=== PATIENT | male | born 1945 | race Caucasian/White ===

== ENCOUNTER 2018-03-09 12:04 | Outpatient (CLI) | payer OTHER | END 2018-03-09 12:05 | disposition home or self-care (01) | LOC: BICMRI 12:04 | PROVIDERS: ATTEND Surgery | DX: M51.36 Other intervertebral disc degeneration, lumbar region (principal); Q06.8 Other specified congenital malformations of spinal cord; M54.2 Cervicalgia; M47.896 Other spondylosis, lumbar region; M48.061 Spinal stenosis, lumbar region without neurogenic claudication; M99.83 Other biomechanical lesions of lumbar region; M47.892 Other spondylosis, cervical region; M48.02 Spinal stenosis, cervical region; M99.81 Other biomechanical lesions of cervical region | CPT/HCPCS: 72131; 72141; 72146; 72192 ==

== ENCOUNTER 2018-06-01 09:27 | Outpatient (CLI) | payer OTHER ==
[2018-06-01 10:58] LABS: PTT 29.8 SEC (22.9-36.1); Prothrombin Time 13.1 SEC (12.0-14.7)
[2018-06-01 11:08] LABS: Hemoglobin 14.4 g/dL (14.0-18.0); Mean Corpuscular HGB CONC 35.5 g/dL (32.0-36.0); Mean Corpuscular Hemoglobin 31.3 pg (27.0-31.0); Mean Corpuscular Volume 88.3 fL (78.0-98.0); Mean Platelet Volume 8.7 fL (7.4-10.4); Platelet Count 105 thou/uL (130-400); RBC Distribution Width 11.9 % (11.5-14.5); Red Blood Cell (RBC) Count 4.61 mill/uL (4.70-6.10); White Blood Cell (WBC) Count 7.4 thou/uL (4.8-10.8)
[2018-06-01 11:14] LABS: Anion Gap 17 mmol/L (10-20); BUN (Urea Nitrogen) 19 mg/dL (8.4-25.7); Calc. Creatinine Clearance 0 mL/min (70-130); Calcium 9.7 mg/dL (7.8-10.44); Carbon Dioxide 23 mmol/L (23-31); Chloride 100 mmol/L (98-107); Estimated GFR-MDRD 82; Glucose 200 mg/dL (83-110); Potassium 3.6 mmol/L (3.5-5.1); Sodium 136 mmol/L (136-145)
--- NOTE | 2018-06-01 13:16 | EKG ---
Test Reason : Blood Pressure : / mmHG Vent. Rate : 073 BPM Atrial Rate : 073 BPM P-R Int : 000 ms QRS Dur : 088 ms QT Int : 374 ms P-R-T Axes : 040 005 000 degrees QTc Int : 412 ms Normal sinus rhythm with sinus arrhythmia Normal ECG No previous ECGs available Confirmed by MANI VALDEZ, DR. Mccloud ([id number]) on 06/01/2018 1:16:36 PM Referred By: TASHA Confirmed By:DR. Ame SINGLETON MD
== END 2018-06-01 09:28 | disposition home or self-care (01) ==
LOC: LABBT 09:27
PROVIDERS: ATTEND Surgery
DX: Z01.818 Encounter for other preprocedural examination (principal); M54.16 Radiculopathy, lumbar region; Q06.8 Other specified congenital malformations of spinal cord
CPT/HCPCS: 80048; 85027; 85610; 85730; 93005; 93010

== ENCOUNTER 2018-06-24 05:52 | Inpatient (IN) | payer OTHER ==
[2018-06-23 09:54] VITALS: BMI 34.4
[2018-06-24 06:53] LABS: #Eosinphils 0.1 thou/uL (0.0-0.7); #Lymphocytes 1.7 thou/uL (1.20-3.40); #Monocytes 0.6 thou/uL (0.11-0.59); #Neutrophils 4.3 thou/uL (1.40-6.50); %Basophils 0.6 % (0.0-1.0); %Eosinophils 2.2 % (0.0-10.0); %Lymphocytes 24.9 % (21.0-51.0); %Monocytes 8.3 % (0.0-10.0); Hemoglobin 13.7 g/dL (14.0-18.0); Mean Corpuscular HGB CONC 34.7 g/dL (32.0-36.0); Mean Corpuscular Hemoglobin 30.7 pg (27.0-31.0); Mean Corpuscular Volume 88.5 fL (78.0-98.0); Mean Platelet Volume 7.7 fL (7.4-10.4); Platelet Count 91 thou/uL (130-400); RBC Distribution Width 11.9 % (11.5-14.5); Red Blood Cell (RBC) Count 4.48 mill/uL (4.70-6.10); White Blood Cell (WBC) Count 6.8 thou/uL (4.8-10.8)
[2018-06-24 06:57] LABS: PTT 28.7 SEC (22.9-36.1); Prothrombin Time 13.3 SEC (12.0-14.7)
[2018-06-24] MEDS ORDERED: CEFAZOLIN 2 GM/50 ML BAG ONE (06:57)
[2018-06-24 07:11] LABS: Anion Gap 19 mmol/L (10-20); BUN (Urea Nitrogen) 22 mg/dL (8.4-25.7); Calc. Creatinine Clearance 125 mL/min (70-130); Calcium 9.3 mg/dL (7.8-10.44); Carbon Dioxide 21 mmol/L (23-31); Chloride 102 mmol/L (98-107); Estimated GFR-MDRD Greater than 90; Glucose 191 mg/dL (83-110); Potassium 3.1 mmol/L (3.5-5.1); Sodium 139 mmol/L (136-145)
[2018-06-24] MEDS ORDERED: Thrombin 5000 UNITS/5 ML VIAL ONE ×2 (09:30→12:34)
[2018-06-24] MEDS ORDERED: Sodium Chloride 0.9% 10 ML ONE (09:30)
[2018-06-24] MEDS ORDERED: Bacitracin Zinc Ointment 30 gm TUBE ONE (09:30)
[2018-06-24] MEDS ORDERED: Fentanyl 100 MCG/2 ML VIAL ONE ×3 (10:01→14:27)
[2018-06-24] MEDS ORDERED: PHENYLEPHRINE-NS 100 MCG/ML 10 ML SYRINGE ONE ×2 (12:14→16:18)
[2018-06-24] MEDS ORDERED: Phenylephrine HCL 10 MG/ML VIAL ONE (12:21)
[2018-06-24] MEDS ORDERED: Ondansetron HCl/PF 4 MG/2 ML Vial IVP PRN (13:54)
[2018-06-24] MEDS ORDERED: Milk Of Magnesia 30 ML UDCUP PO PRN (14:09)
[2018-06-24] MEDS ORDERED: Promethazine HCl 25 MG/ML VIAL IM PRN (14:09)
[2018-06-24] MEDS ORDERED: Fleet Enema 133 ML BOT PR PRN (14:09)
[2018-06-24] MEDS ORDERED: Mag-Al 1200 mg/1200 mg/30 ML UDCUP PO PRN (14:09)
[2018-06-24] MEDS ORDERED: traMADol HCl 50 MG TAB PO PRN (14:09)
[2018-06-24] MEDS ORDERED: Morphine 2 MG/ML SYRINGE SLOW IVP PRN (14:09)
[2018-06-24] MEDS ORDERED: HYDROcodone/Acetaminophen 7.5/325 mg Tablet PO PRN (14:09)
[2018-06-24] MEDS ORDERED: tiZANidine HCl 4 MG TAB PO PRN (14:09)
[2018-06-24] MEDS ORDERED: Bisacodyl 10 MG SUPP PR PRN (14:09)
[2018-06-24] MEDS ORDERED: Promethazine HCl 25 MG/ML VIAL ONE (14:11)
[2018-06-24] MEDS ORDERED: DESONIDE 0.05% TOP PRN (14:14)
--- NOTE | 2018-06-24 15:33 | OP ---
DATE OF PROCEDURE: 06/24/2018 OPERATING ROOM: OR 12. WOUND CLASSIFICATION: Type 1 wound. BUSINESS MANAGEMENT INTERN: Pilo Gonzales PA-C PREPROCEDURE DIAGNOSIS: Lumbar stenosis with associated tethered cord and thickened filum terminale. POSTPROCEDURE DIAGNOSIS: Lumbar stenosis with associated tethered cord and thickened filum terminale. PROCEDURES PERFORMED: 1. L4-L5 and L5-S1 laminectomies, partial facetectomies, foraminotomies for decompression of the L4, L5, and S1 nerve roots. 2. Untethering of the thickened filum terminale through S1-S2 approach over thickened filum terminale with untethering. 3. Use of operative microscope for microdissection. DESCRIPTION OF PROCEDURE: After informed consent was obtained from the patient, the patient was brought to OR. Appropriate patient's pause and identification were carried out. He was placed under excellent general endotracheal anesthesia, positioned prone on the OR table. Appropriate points were padded. We identified the L4, L5, S1, and S2 dorsal spines and also a dimple above the gluteal fold consistent with a neural tube defect. MRI demonstrated T1 hyperintensity and increased measurement of the filum terminale with a low-lying conus. As such, I suspected the patient had findings consistent with both low back and leg pain related to lumbar stenosis and associated radiculopathy and findings of a tethered cord leading to pain as well as bowel and bladder dysfunction. As such, following the sterile cleansing preparation and draping, the wound was then opened with a combination of sharp, monopolar, and blunt dissection. The L4, L5, S1, S2, dorsal spines, and lamina were all exposed. Localization confirmed our area of interest following subperiosteal exposure. We then performed L4-L5 and L5-S1 laminectomies, partial facetectomies, and foraminotomies over the L4, L5, and S1 nerve roots. We then, at the S1-S2 segment, identified following laminectomy, the posterior dural tube and this was opened and the microscope brought in the field. CSF was released. The thickened filum terminale was identified with an associated serpentine vessel. was able to evaluate distally to ensure no nerve roots were coming off the filum or adherent to the thickened filum. 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 I identified a safe area to cauterize and section the filum terminale and this allowed for freeing up of the cord, subsequent retraction. Copious irrigation occurred throughout as did maximize the hemostasis. Dura was then closed with the use of microdissection with a running locking suture. No further CSF leak was identified. The wound was then copiously irrigated. Hemostasis maximized and the wound was closed in anatomic layers, following sprinkling of vancomycin powder and the use of DuraSeal. The patient then emerged from anesthesia. Job ID: [id number]
[2018-06-24] MEDS: Sodium Chloride 0.9% 1,000 ML IV SCH (15:47)
[2018-06-24] MEDS: HumaLOG 300 UNITS/3 ML VIAL SC SCH ×2 (15:47→22:07)
[2018-06-24] MEDS ORDERED: ePHEDrine/0.9% NaCl/PF SYRINGE 50 mg/10 ml ONE (16:18)
[2018-06-24] MEDS ORDERED: PROPOFOL 200 MG/20 ML VIAL ONE (16:18)
[2018-06-24] MEDS ORDERED: Lidocaine 1% PF 5 ML VIAL ONE (16:18)
[2018-06-24] MEDS: Morphine 4 MG/ML VIAL SLOW IVP PRN ×3 (16:28→20:38)
[2018-06-24] MEDS: CEFAZOLIN 2 GM/50 ML BAG IVPB SCH (16:29)
[2018-06-24] MEDS: metFORMIN 500 MG TAB PO SCH (17:18)
[2018-06-24] MEDS: Atorvastatin Calcium 10 MG TAB PO SCH (20:38)
[2018-06-24] MEDS: Terazosin HCl 5 MG CAP PO SCH (20:38)
[2018-06-24] MEDS ORDERED: Non-Formulary Item 1 EACH (Insulin Detemir [Levemir] 45 UNIT) SQ SCH (21:00)
[2018-06-24] MEDS: Insulin Glargine 45 UNITS in Pre-Filled Syringe 1 EACH SC SCH (22:06)
[2018-06-25] MEDS: CEFAZOLIN 2 GM/50 ML BAG IVPB SCH ×3 (00:03→16:00)
[2018-06-25] MEDS: Sodium Chloride 0.9% 1,000 ML IV SCH ×2 (06:44→17:33)
[2018-06-25] MEDS ORDERED: INSULIN DETEMIR 40 UNIT SQ SCH (09:00)
[2018-06-25] MEDS ORDERED: Prevnar 13-Val Conj/PF 0.5 ML SYRINGE IM ONE (09:00)
[2018-06-25] MEDS ORDERED: Ondansetron PF 4 MG/2 ML Vial IVP PRN (09:31)
[2018-06-25] MEDS: Losartan 25 MG TAB PO SCH (11:17)
[2018-06-25] MEDS: metFORMIN 500 MG TAB PO SCH ×2 (11:17→17:25)
[2018-06-25] MEDS: Multivit, Therapeutic 1 TAB PO SCH (11:18)
[2018-06-25] MEDS: Triamterene/Hydrochlorothiazid 75 mg/50 mg Tablet PO SCH (11:18)
[2018-06-25] MEDS: HumaLOG 300 UNITS/3 ML VIAL SC SCH ×3 (11:19→21:53)
[2018-06-25] MEDS: Insulin Glargine 40 UNITS in Pre-Filled Syringe 1 EACH SC SCH (11:19)
--- NOTE | 2018-06-25 13:07 | PRG ---
DATE OF SERVICE: 06/25/2018 Mr. Crisostomo is postoperative day one from lumbar decompression and sacral laminectomy for untethering of his spinal cord. Neurologically, he is moving his extremities to command with excellent strength. He denies leg pain this morning, although does have back and leg pain with certain movements. He had a desire to void yesterday evening, but is only able to spontaneously void a few milliliters. We had kept him flat overnight because of opening his dural tube. An indwelling Lacy catheter had to be placed due to urinary retention, which he had baseline. He has had two bowel movements both after surgery. He reports that his scrotal and perianal sensation is intact and I have tested these, and he reports that he can feel. He also feels the tug of the Lacy catheter. He has rectal tone, but it does appear to be diminished, but I am able to feel an active contraction on digital rectal examination. The patient has had longstanding urinary retention preoperatively and has stated that the metformin has affected his bowels in the past as well. Nevertheless, my hope is that this will improve and I am encouraged in this regard. There was no evidence of any nerve root takeoff at the S3 or S4 nerve roots intraoperatively off of the thickened filum terminale that did have fatty infiltration. Our suctioning was below S2 anyway and the exiting S2 and 3 nerve roots were clearly identified. We will begin to sit him up with head of bed elevation and monitor for headache. I would recommend his wound continues to stay dry given that he has had two bowel movements and has not been getting out of bed at this time. We will continue to monitor incontinence and plan to mobilize the patient. I do think he would benefit from inpatient rehabilitation. I have updated his simply take time for him to recover following the untethering procedure. I should note he does have some delirium this morning, which is not at all unusual for a patient at his age when they have been kept flat overnight postoperatively. We will plan activity as tolerated today should he tolerate sitting upright. He has also had evidence of nausea and vomiting that we will work on as well. Job ID: [id number]
[2018-06-25] MEDS: Acetaminophen 325 MG TAB PO PRN (14:52)
[2018-06-25] MEDS: Terazosin HCl 5 MG CAP PO SCH (21:40)
[2018-06-25] MEDS: Atorvastatin Calcium 10 MG TAB PO SCH (21:40)
[2018-06-25] MEDS: Insulin Glargine 45 UNITS in Pre-Filled Syringe 1 EACH SC SCH (21:53)
[2018-06-26] MEDS: metFORMIN 500 MG TAB PO SCH ×2 (08:11→17:41)
[2018-06-26] MEDS: Losartan 25 MG TAB PO SCH (08:13)
[2018-06-26] MEDS: Insulin Glargine 40 UNITS in Pre-Filled Syringe 1 EACH SC SCH (08:13)
[2018-06-26] MEDS: HumaLOG 300 UNITS/3 ML VIAL SC SCH (08:13)
[2018-06-26] MEDS: Multivit, Therapeutic 1 TAB PO SCH (08:14)
[2018-06-26] MEDS: Triamterene/Hydrochlorothiazid 75 mg/50 mg Tablet PO SCH (08:14)
[2018-06-26] MEDS: Acetaminophen 325 MG TAB PO PRN ×3 (08:14→23:21)
[2018-06-26] MEDS: Sodium Chloride 0.9% 1,000 ML IV SCH ×2 (08:29→23:15)
--- NOTE | 2018-06-26 09:58 | RAD ---
PORTABLE CHEST ONE VIEW: 06/26/2018 8:47 a.m. HISTORY: Altered mental status and fever. FINDINGS: The heart size is borderline. No focal areas of consolidation, pneumothorax, jhonny pulmonary edema, or pleural effusions are seen. POS: [facility]
--- NOTE | 2018-06-26 10:13 | CT ---
CT BRAIN WITHOUT CONTRAST: HISTORY: Altered mental status. The patient had a laminectomy two days ago. COMPARISON: There are no previous exams for comparison. FINDINGS: There is a moderate amount of pneumocephalus. A small amount of acute hemorrhage is seen in the late ral ventricles. A small amount of acute hemorrhage is also seen in the subarachnoid spaces. No midl ine shift is seen. No hydrocephalus is identified. The bony calvarium is intact. The visualized pa ranasal sinuses and mastoid air cells are well aerated. No evidence of acute infarction is seen. IMPRESSION: Pneumocephalus and small amount of acute intracranial hemorrhage (intraventricular and subarachnoid). Discussed over the telephone with AFRICA Perez at 9:11 a.m. CODE CR POS: [facility]
--- NOTE | 2018-06-26 10:54 | PRG ---
DATE OF SERVICE: 06/26/2018 SUBJECTIVE: Mr. Crisostomo is a 73-year-old man, who is postoperative day 2 following lumbar decompression and tethered cord release with Dr. Cardenas. Unfortunately, this morning, he appears to be rather delirious and is unable to answer any question other than saying yes with additionally a significant delay in response. His reports this is very far outside of his normal, and there has been no significant improvement since postop from a cognitive standpoint unfortunately. He is running a fever today of 101. We will obtain a head CT to check for any brain sag or hemorrhage development. We will also order blood cultures, urine cultures, and obtain a chest x-ray. We will discuss with Dr. Kelley. Job ID: [id number]
[2018-06-26] MEDS ORDERED: Dextrose 5% in Water 1,000 ML IV PRN (12:07)
[2018-06-26] MEDS ORDERED: Dextrose 50% Abboject 50 ML SYRINGE SLOW IVP PRN (12:07)
[2018-06-26] MEDS ORDERED: HumaLOG 300 UNITS/3 ML VIAL SC PRN (12:07)
--- NOTE | 2018-06-26 12:13 | PRG ---
DATE OF SERVICE: 06/26/2018 SUBJECTIVE: Mr. Crisostomo is now 2 days status post disconnection of the tethered cord. He was noted to have altered mental status this morning. He had a head CT performed, which shows pneumocephalus and small degree of intracranial hemorrhage, both of which I believe relate to his entrainment of blood and air from his lumbar spine surgery. There is no evidence for infarct. There is no evidence for mass effect. I met with the patient and his family today. He does interact, but does so slowly. He has a tendency to perseverate on occasion. Family notice slight droopiness of the right eyelid. I believe most, if not all, his symptoms likely relate to postoperative pneumocephalus and maybe some of the intracranial blood is present. He is awake and alert. I believe the prudent plan moving forward would be one of observation without any other intervention. We will continue to have Physical Therapy work with him. Job ID: [id number]
[2018-06-26 12:34] LABS: INR-International Normal Ratio 1.1; PTT 35.5 SEC (22.9-36.1); Prothrombin Time 14.7 SEC (12.0-14.7)
--- NOTE | 2018-06-26 12:40 | PDOC.PN ---
- Subjective Encounter Start Date: 06/26/18 Encounter Start Time: 12:30 Subjective: awakens easily, snores while sleeping but no apnea observed -: no chest pain, he recognizes all his children by names and knows their kids -: as well (grand children). No sob or palp. Moves all extremities - Objective MAR Reviewed: Yes Vital Signs & Weight: Vital Signs (12 hours) Temp Pulse Resp BP Pulse Ox 06/26/18 07:50 101.3 F H 107 H 24 H 112/68 92 L 06/26/18 04:32 99.1 F 109 H 20 103/63 91 L Weight Weight 240 lb I&O: 06/25/18 06/26/18 06/27/18 06:59 06:59 06:59 Intake Total 1430 1929 Output Total 1900 1725 Balance -470 204 Result Diagrams: 06/24/18 06:43 06/24/18 06:43 Additional Labs: Accuchecks 06/26/18 06/26/18 06/25/18 11:12 05:38 21:43 POC Glucose 88 157 H 206 H 06/25/18 06/25/18 17:18 15:33 POC Glucose 207 H 202 H Phys Exam - Physical Examination HEENT: PERRLA, moist MMs Neck: no JVD, supple Respiratory: no wheezing, no rales occ rhonchi+ Cardiovascular: RRR, no significant murmur Gastrointestinal: soft, positive bowel sounds Musculoskeletal: no edema, pulses present Neurological: non-focal, moves all 4 limbs occ blank stares while answering Dx/Plan (1) mild delerium Status: Acute (2) Status post lumbar spine surgery for decompression of spinal cord Code(s): Z98.890 - OTHER SPECIFIED POSTPROCEDURAL STATES Status: Acute Comment: s/p lumbar decompression, sacral laminectomy, untethering of sc (3) DM type 2 (diabetes mellitus, type 2) Status: Chronic Qualifiers: Diabetes mellitus ocean transportation intermediary insulin use: with skilled nursing use Diabetes mellitus complication status: with unspecified complications Qualified Code(s) : E11.8 - Type 2 diabetes mellitus with unspecified complications; Z79.4 - termite exterminator helper (current) use of insulin (4) HTN (hypertension) Code(s): I10 - ESSENTIAL (PRIMARY) HYPERTENSION Status: Chronic Qualifiers: Hypertension type: essential hypertension Qualified Code(s): I10 - Essential (primary) hypertension (5) Obesity (BMI 30.0-34.9) Code(s): E66.9 - OBESITY, UNSPECIFIED Status: Chronic (6) Urinary retention Code(s): R33.9 - RETENTION OF URINE, UNSPECIFIED Status: Acute Comment: has patrick - Plan i.spirometry, ambulation with PT -: cxr and CT brain results noted, labs drawn now will f/u -: d/w family at bedside -: dc diuretic, gentle iv hydration, cozaar, lantus and terazosin -: currently eating well, will hold metformin if he stops eating/confused * . usg venous doppler to r/o dvt He normally amb by himself prior h/o smoking cigars for 40 yrs, quit 10 yrs back duonebs prn Review of Systems - Medications/Allergies Allergies/Adverse Reactions: Allergies Allergy/AdvReac Type Severity Reaction Status Date / Time irbesartan Allergy Verified 06/23/18 09:55 lisinopril Allergy cough Verified 06/23/18 09:55 Medications: Current Medications Acetaminophen (Tylenol) 650 mg PO Q4H PRN PRN Reason: Headache/Fever or Pain Last Admin: 06/26/18 08:14 Dose: 650 mg Hydrocodone Bitart/Acetaminophen ([place] 7.5/325) 1 tab PO Q4H PRN PRN Reason: Moderate Pain (4-6) Al Hydroxide/Mg Hydroxide (Maalox) 30 ml PO Q4H PRN PRN Reason: Indigestion Atorvastatin Calcium (Lipitor) 10 mg PO HS [facility] Last Admin: 06/25/18 21:40 Dose: 10 mg Bisacodyl (Dulcolax) 10 mg [place] Q12H PRN PRN Reason: Constipation Desonide (Desowen 0.05% Lotion) 0 ml TOP BID PRN PRN Reason: PSORIASIS Dextrose/Water (Dextrose 50%) 25 gm SLOW IVP PRN PRN PRN Reason: Hypoglycemia Glucagon (Glucagon) 1 mg IM PRN PRN PRN Reason: Hypoglycemia Sodium Chloride (Normal Saline 0.9%) 1,000 mls @ 75 mls/hr IV .[id number] [facility] Last Admin: 06/26/18 08:29 Dose: Not Given Insulin Glargine 40 units/ (Miscellaneous Medication) 0.4 mls @ 0 mls/hr [facility] Last Admin: 06/26/18 08:13 Dose: 0.4 mls Insulin Glargine 45 units/ (Miscellaneous Medication) 0.45 mls @ 0 mls/hr SC [facility] Last Admin: 06/25/18 21:53 Dose: 0.45 mls Dextrose/Water (D5w) 1,000 mls @ 0 mls/hr IV .Q0M PRN PRN Reason: Hypoglycemia Insulin Human Lispro (Humalog) 0 units SC .MODERATE SLIDING SC PRN PRN Reason: Moderate Correctional Scale Insulin Human Lispro (Humalog) 0 units SC .BEDTIME SLIDING SC PRN PRN Reason: Bedtime Correctional Scale Losartan Potassium (Cozaar) 50 mg PO [facility] Last Admin: 06/26/18 08:13 Dose: 50 mg Magnesium Hydroxide (Milk Of Magnesium) 30 ml PO Q12H PRN PRN Reason: Constipation Metformin HCl (Glucophage) 1,000 mg PO BID-[facility] Last Admin: 06/26/18 08:11 Dose: 1,000 mg Morphine Sulfate (Morphine) 2 mg SLOW IVP Q1H PRN PRN Reason: Severe Pain (7-10) Last Admin: 06/24/18 20:38 Dose: 2 mg Multivitamins (Theragran) 1 tab PO DAILY [facility] Last Admin: 06/26/18 08:14 Dose: 1 tab Ondansetron HCl (Zofran) 4 mg IVP Q6H PRN PRN Reason: Nausea/Vomiting Last Admin: 06/25/18 10:07 Dose: 4 mg Pantoprazole Sodium (Protonix) 40 mg PO DAILY [facility] Last Admin: 06/26/18 08:14 Dose: 40 mg Promethazine HCl (Phenergan) 12.5 mg IM Q4H PRN PRN Reason: Nausea/Vomiting Last Admin: 06/24/18 20:38 Dose: 12.5 mg Sodium Chloride (Flush - Normal Saline) 10 ml IVF PRN PRN PRN Reason: Saline Flush Last Admin: 06/25/18 09:04 Dose: 10 ml Terazosin HCl (Hytrin) 10 mg PO [facility] Last Admin: 06/25/18 21:40 Dose: 10 mg Tizanidine HCl (Zanaflex) 4 mg PO Q6H PRN PRN Reason: Muscle Spasm Tramadol HCl (Ultram) 50 mg PO Q6H PRN PRN Reason: Mild Pain (1-3)
[2018-06-26 12:49] LABS: ALT (SGPT) 35 U/L (8-55); AST (SGOT) 109 U/L (5-34); Albumin 3.5 g/dL (3.4-4.8); Alkaline Phosphatase 45 U/L (40-150); Anion Gap 13 mmol/L (10-20); BUN (Urea Nitrogen) 17 mg/dL (8.4-25.7); Bilirubin, Total 1.3 mg/dL (0.2-1.2); Calc. Creatinine Clearance 122 mL/min (70-130); Carbon Dioxide 29 mmol/L (23-31); Chloride 100 mmol/L (98-107); Estimated GFR-MDRD Greater than 90; Globulin 3.4 g/dL (2.4-3.5); Glucose 96 mg/dL (83-110); Protein, Total 6.9 g/dL (5.8-8.1); Sodium 139 mmol/L (136-145)
[2018-06-26 12:54] LABS: Potassium 2.6 mmol/L (3.5-5.1)
[2018-06-26 13:26] LABS: Band 15 % (5-11); Hemoglobin 12.3 g/dL (14.0-18.0); Lymphocytes 8 % (21-51); MDiff Complete? YES; Mean Corpuscular HGB CONC 34.2 g/dL (32.0-36.0); Mean Corpuscular Hemoglobin 30.9 pg (27.0-31.0); Mean Corpuscular Volume 90.1 fL (78.0-98.0); Mean Platelet Volume 7.7 fL (7.4-10.4); Monocytes 3 % (0-10); Neutrophil 74 % (42-75); PLT Morphology Comment Appears Decreased; Platelet Count 101 thou/uL (130-400); RBC Distribution Width 12.1 % (11.5-14.5); Red Blood Cell (RBC) Count 3.98 mill/uL (4.70-6.10)
[2018-06-26] MEDS ORDERED: Furosemide 40 MG/4 ML VIAL SLOW IVP SCH (13:30)
--- NOTE | 2018-06-26 16:42 | ULT ---
BILATERAL LOWER EXTREMITY VENOUS DUPLEX EXAM: 06/26/18 HISTORY: Bilateral leg pain and swelling. Real time color doppler evaluation of the right and left lower extremities were performed from groin to calf. This includes evaluation of common femoral, superficial and profunda femoral, saphenous, pop liteal and posterior tibial veins. This shows patent deep venous systems bilaterally. There is normal compressibility and augmentation. There is no evidence of DVT. IMPRESSION: No evidence of DVT of either lower extremity. POS: [facility]
[2018-06-26] MEDS: Terazosin HCl 5 MG CAP PO SCH (20:14)
[2018-06-26] MEDS: Atorvastatin Calcium 10 MG TAB PO SCH (20:14)
[2018-06-26] MEDS: HumaLOG 300 UNITS/3 ML VIAL SC PRN (20:15)
[2018-06-26] MEDS: Insulin Glargine 45 UNITS in Pre-Filled Syringe 1 EACH SC SCH (20:15)
[2018-06-27 09:02] LABS: #Lymphocytes 1.2 thou/uL (1.20-3.40); #Monocytes 0.8 thou/uL (0.11-0.59); #Neutrophils 9.5 thou/uL (1.40-6.50); %Basophils 0.3 % (0.0-1.0); %Eosinophils 0.1 % (0.0-10.0); %Lymphocytes 10.6 % (21.0-51.0); %Monocytes 6.7 % (0.0-10.0); %Neutrophils 82.3 % (42.0-75.0); Hemoglobin 11.9 g/dL (14.0-18.0); Mean Corpuscular HGB CONC 34.1 g/dL (32.0-36.0); Mean Corpuscular Hemoglobin 30.8 pg (27.0-31.0); Mean Corpuscular Volume 90.3 fL (78.0-98.0); Mean Platelet Volume 8.5 fL (7.4-10.4); Platelet Count 114 thou/uL (130-400); RBC Distribution Width 11.9 % (11.5-14.5); Red Blood Cell (RBC) Count 3.85 mill/uL (4.70-6.10); White Blood Cell (WBC) Count 11.6 thou/uL (4.8-10.8)
[2018-06-27] MEDS: Insulin Glargine 40 UNITS in Pre-Filled Syringe 1 EACH SC SCH (09:06)
[2018-06-27] MEDS: metFORMIN 500 MG TAB PO SCH ×2 (09:08→16:28)
[2018-06-27] MEDS: Losartan 25 MG TAB PO SCH (09:09)
[2018-06-27] MEDS: Multivit, Therapeutic 1 TAB PO SCH (09:09)
[2018-06-27] MEDS: Sodium Chloride 0.9% 1,000 ML IV SCH (09:09)
[2018-06-27 09:22] LABS: Anion Gap 13 mmol/L (10-20); BUN (Urea Nitrogen) 22 mg/dL (8.4-25.7); Calc. Creatinine Clearance 124 mL/min (70-130); Calcium 8.7 mg/dL (7.8-10.44); Carbon Dioxide 27 mmol/L (23-31); Chloride 99 mmol/L (98-107); Estimated GFR-MDRD Greater than 90; Glucose 228 mg/dL (83-110); Potassium 4.2 mmol/L (3.5-5.1); Sodium 135 mmol/L (136-145)
--- NOTE | 2018-06-27 11:33 | PRG ---
DATE OF SERVICE: 06/27/2018 SUBJECTIVE: Mr. Crisostomo this morning is somewhat improved from yesterday, answering some of my questions appropriately and actually appeared relatively normal initially; however, his speech somewhat fatigued as we talked further, ultimately mumbling and inappropriately answering questions. CT scan was discussed with the family yesterday by Dr. Kelley. Plan will be to continue to follow along. He does have urine and blood cultures pending. Potassium has been corrected from 2.6 yesterday up to 4.2 today. Neurosurgery will continue to follow along. Job ID: [id number]
--- NOTE | 2018-06-27 12:06 | PRG ---
DATE OF SERVICE: 06/27/2018 Mr. Crisostomo is now 3 days status post a lumbar laminectomy for disconnection of tethered cord. He over the past 24 to 48 hours been dealing with degree of delirium and encephalopathy. He awakens for me in the room and answers all of my questions appropriately. He is slow to answer at times. He moves all of his extremities with appropriate strength. Neurologically, he appears to be otherwise intact with the exception of ptosis on the right side. He had a head CT performed, which reveals a pneumocephalus and a little bit of subarachnoid blood. I believe this likely to be a byproduct of his lumbar spine surgery and is the most likely culprit for his persistent delirium. He is currently on oxygen. He has been pancultured, the results of which so far are negative. He has had his electrolytes corrected. The Hospitalist Service is also following along. I met with him and the family today to update them. I believe at this point in time he needs additional time to recover. We will remain vigilant with respect to his symptoms over the next several days. Job ID: [id number]
[2018-06-27] MEDS: HumaLOG 300 UNITS/3 ML VIAL SC PRN ×2 (12:29→16:25)
[2018-06-27] MEDS: Acetaminophen 325 MG TAB PO PRN (12:42)
--- NOTE | 2018-06-27 12:54 | PDOC.PN ---
- Subjective Encounter Start Date: 06/27/18 Encounter Start Time: 11:00 Subjective: awakens easily, ate his breakfast -: at bedside -: no sob or pain - Objective MAR Reviewed: Yes Vital Signs & Weight: Vital Signs (12 hours) Temp Pulse Resp BP Pulse Ox 06/27/18 11:09 99.4 F 97 24 H 136/80 97 06/27/18 08:00 95 06/27/18 07:29 100.1 F H 105 H 26 H 129/78 95 06/27/18 04:47 99.2 F 100 18 109/68 95 Weight Weight 240 lb I&O: 06/26/18 06/27/18 06/28/18 06:59 06:59 06:59 Intake Total 1929 1060 Output Total 8135 3150 Balance 204 -2089 Result Diagrams: 06/27/18 08:27 06/27/18 08:27 Additional Labs: Accuchecks 06/27/18 06/27/18 06/26/18 11:11 05:57 19:52 POC Glucose 295 H 152 H 202 H 06/26/18 16:01 POC Glucose 166 H Phys Exam - Physical Examination HEENT: PERRLA, moist MMs Neck: no JVD, supple Respiratory: no wheezing, no rales Cardiovascular: RRR, no significant murmur Gastrointestinal: soft, non-tender, positive bowel sounds Musculoskeletal: no edema, pulses present Neurological: non-focal, moves all 4 limbs Dx/Plan (1) mild delerium Status: Acute (2) Status post lumbar spine surgery for decompression of spinal cord Code(s): Z98.890 - OTHER SPECIFIED POSTPROCEDURAL STATES Status: Acute Comment: s/p lumbar decompression, sacral laminectomy, untethering of cord (3) DM type 2 (diabetes mellitus, type 2) Status: Chronic Qualifiers: 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 Diabetes mellitus complication status: with unspecified complications Qualified Code(s) : E11.8 - Type 2 diabetes mellitus with unspecified complications; Z79.4 - correction (current) use of insulin (4) HTN (hypertension) Code(s): I10 - ESSENTIAL (PRIMARY) HYPERTENSION Status: Chronic Qualifiers: Hypertension type: essential hypertension Qualified Code(s): I10 - Essential (primary) hypertension (5) Obesity (BMI 30.0-34.9) Code(s): E66.9 - OBESITY, UNSPECIFIED Status: Chronic (6) Urinary retention Code(s): R33.9 - RETENTION OF URINE, UNSPECIFIED Status: Acute Comment: has patrick - Plan hemostable -: fever is slowly resolving -: electrolytes are stable, prelim cs are -ve -: to work with i.spirometry, d/w at bedside -: to amb with PT as tolerated, continue current meds * . will not increase insulin or add meds for slightly uncontrolled dm due to mild delerium and labile eating at present Dc plan will be to rehab continue cozaar, terazosin, lipitor, lantus, and gentle iv hydration Will add metformin in am if stable and fingerstick continues to trend above 175mg/dl Review of Systems - Medications/Allergies Allergies/Adverse Reactions: Allergies Allergy/AdvReac Type Severity Reaction Status Date / Time irbesartan Allergy Verified 06/23/18 09:55 lisinopril Allergy cough Verified 06/23/18 09:55 Medications: Current Medications Acetaminophen (Tylenol) 650 mg PO Q4H PRN PRN Reason: Headache/Fever or Pain Last Admin: 06/27/18 12:42 Dose: 650 mg Hydrocodone Bitart/Acetaminophen ([place] 7.5/325) 1 tab PO Q4H PRN PRN Reason: Moderate Pain (4-6) Al Hydroxide/Mg Hydroxide (Maalox) 30 ml PO Q4H PRN PRN Reason: Indigestion Albuterol/Ipratropium (Duoneb) 3 ml NEB [id number] PRN PRN Reason: SOB &/or Wheezing Atorvastatin Calcium (Lipitor) 10 mg PO HS [facility] Last Admin: 06/26/18 20:14 Dose: 10 mg Bisacodyl (Dulcolax) 10 mg [place] Q12H PRN PRN Reason: Constipation Desonide ([place]owen 0.05% Lotion) 0 ml TOP BID PRN PRN Reason: PSORIASIS Dextrose/Water (Dextrose 50%) 25 gm SLOW IVP PRN PRN PRN Reason: Hypoglycemia Glucagon (Glucagon) 1 mg IM PRN PRN PRN Reason: Hypoglycemia Sodium Chloride (Normal Saline 0.9%) 1,000 mls @ 75 mls/hr IV .[id number] [facility] Last Admin: 06/27/18 09:09 Dose: Not Given Insulin Glargine 40 units/ (Miscellaneous Medication) 0.4 mls @ 0 mls/hr [facility] Last Admin: 06/27/18 09:06 Dose: 0.4 mls Insulin Glargine 45 units/ (Miscellaneous Medication) 0.45 mls @ 0 mls/hr SC [facility] Last Admin: 06/26/18 20:15 Dose: 0.45 mls Dextrose/Water (D5w) 1,000 mls @ 0 mls/hr IV .Q0M PRN PRN Reason: Hypoglycemia Insulin Human Lispro (Humalog) 0 units [place] .BEDTIME SLIDING SC PRN PRN Reason: Bedtime Correctional Scale Last Admin: 06/26/18 20:15 Dose: 2 unit Insulin Human Lispro (Humalog) 0 units [place] .AGGRESSIVE SLIDING PRN; Protocol PRN Reason: AGGRESSIVE SLIDING SCALE Last Admin: 06/27/18 12:29 Dose: 9 unit Losartan Potassium (Cozaar) 50 mg PO [facility] Last Admin: 06/27/18 09:09 Dose: 50 mg Magnesium Hydroxide (Milk Of Magnesium) 30 ml PO Q12H PRN PRN Reason: Constipation Metformin HCl (Glucophage) 1,000 mg PO BID-[facility] Last Admin: 06/27/18 09:08 Dose: 1,000 mg Morphine Sulfate (Morphine) 2 mg SLOW IVP Q1H PRN PRN Reason: Severe Pain (7-10) Last Admin: 06/24/18 20:38 Dose: 2 mg Multivitamins (Theragran) 1 tab PO DAILY [facility] Last Admin: 06/27/18 09:09 Dose: 1 tab Ondansetron HCl (Zofran) 4 mg IVP Q6H PRN PRN Reason: Nausea/Vomiting Last Admin: 06/25/18 10:07 Dose: 4 mg Pantoprazole Sodium (Protonix) 40 mg PO DAILY [facility] Last Admin: 06/27/18 09:09 Dose: 40 mg Promethazine HCl (Phenergan) 12.5 mg IM Q4H PRN PRN Reason: Nausea/Vomiting Last Admin: 06/24/18 20:38 Dose: 12.5 mg Sodium Chloride (Flush - Normal Saline) 10 ml IVF PRN PRN PRN Reason: Saline Flush Last Admin: 06/25/18 09:04 Dose: 10 ml Terazosin HCl (Hytrin) 10 mg PO HS [facility] Last Admin: 06/26/18 20:14 Dose: 10 mg Tizanidine HCl (Zanaflex) 4 mg PO Q6H PRN PRN Reason: Muscle Spasm Tramadol HCl (Ultram) 50 mg PO Q6H PRN PRN Reason: Mild Pain (1-3)
[2018-06-27] MEDS: Terazosin HCl 5 MG CAP PO SCH (20:34)
[2018-06-27] MEDS: Atorvastatin Calcium 10 MG TAB PO SCH (20:34)
[2018-06-27] MEDS: Insulin Glargine 45 UNITS in Pre-Filled Syringe 1 EACH SC SCH (20:44)
[2018-06-28] MEDS: Sodium Chloride 0.9% 1,000 ML IV SCH ×2 (01:19→09:59)
[2018-06-28 06:33] LABS: Anion Gap 14 mmol/L (10-20); BUN (Urea Nitrogen) 21 mg/dL (8.4-25.7); Calc. Creatinine Clearance 139 mL/min (70-130); Calcium 8.7 mg/dL (7.8-10.44); Carbon Dioxide 25 mmol/L (23-31); Chloride 100 mmol/L (98-107); Estimated GFR-MDRD Greater than 90; Glucose 103 mg/dL (83-110); Potassium 3.3 mmol/L (3.5-5.1); Sodium 136 mmol/L (136-145)
[2018-06-28] MEDS: Losartan 25 MG TAB PO SCH (09:08)
[2018-06-28] MEDS: Multivit, Therapeutic 1 TAB PO SCH (09:08)
[2018-06-28] MEDS: Insulin Glargine 40 UNITS in Pre-Filled Syringe 1 EACH SC SCH (09:08)
[2018-06-28] MEDS: metFORMIN 500 MG TAB PO SCH ×2 (09:08→16:07)
--- NOTE | 2018-06-28 09:35 | CT ---
CT OF THE HEAD WITHOUT CONTRAST: Date: 06/28/18 COMPARISON: 06/26/18. HISTORY: Reevaluate intracranial gas and intracranial hemorrhage seen on prior imaging. TECHNIQUE: Axial CT imaging at 5 mm intervals from vertex through skull base without contrast. FINDINGS: The imaged paranasal sinuses and mastoid air cells are well aerated. There are numerous punctate foci of pneumocephalus in bilateral frontal regions, left greater than ri ght. The volume of pneumocephalus has decreased significantly when compared to the 06/26/18 examinati on. The prior examination demonstrated high density material layering posteriorly within the posterior as pect of bilateral lateral ventricles. This has resolved as well. The prior examination also demonstra cesilia subarachnoid hemorrhage near the vertex bilaterally, also no longer seen. No new hemorrhage. No m idline shift or mass effect. IMPRESSION: Interval resolution of previously noted intracranial hemorrhage. Improving pneumocephalus in bilatera l frontal regions. POS: [facility]
--- NOTE | 2018-06-28 11:37 | PDOC.PN ---
- Subjective Encounter Start Date: 06/28/18 Encounter Start Time: 10:20 Subjective: is awake, responds well to verbal stimuli but sometimes trails off -: no sob - Objective MAR Reviewed: Yes Vital Signs & Weight: Vital Signs (12 hours) Temp Pulse Resp BP Pulse Ox 06/28/18 08:00 99.0 F 89 20 129/71 93 L 06/28/18 04:44 99.2 F 95 19 122/69 96 06/28/18 00:26 98.3 F 95 19 131/67 95 Weight Weight 240 lb I&O: 06/27/18 06/28/18 06/29/18 06:59 06:59 06:59 Intake Total 1060 1600 Output Total 3150 1650 Balance [id number] Result Diagrams: 06/27/18 08:27 06/28/18 05:53 Additional Labs: Accuchecks 06/28/18 06/27/18 06/27/18 05:56 20:44 15:37 POC Glucose 115 H 188 H 180 H Phys Exam - Physical Examination HEENT: PERRLA, moist MMs Neck: no JVD, supple Respiratory: no wheezing, no rales Cardiovascular: RRR, no significant murmur Gastrointestinal: soft, non-tender, positive bowel sounds Musculoskeletal: no edema, pulses present Neurological: non-focal, moves all 4 limbs Dx/Plan (1) mild delerium Status: Acute (2) Status post lumbar spine surgery for decompression of spinal cord Code(s): Z98.890 - OTHER SPECIFIED POSTPROCEDURAL STATES Status: Acute Comment: s/p lumbar decompression, sacral laminectomy, untethering of cord (3) DM type 2 (diabetes mellitus, type 2) Status: Chronic Qualifiers: Diabetes mellitus termite control servicer insulin use: with termite control servicer use Diabetes mellitus complication status: with unspecified complications Qualified Code(s) : E11.8 - Type 2 diabetes mellitus with unspecified complications; Z79.4 - assistant terminal manager (current) use of insulin (4) HTN (hypertension) Code(s): I10 - ESSENTIAL (PRIMARY) HYPERTENSION Status: Chronic Qualifiers: Hypertension type: essential hypertension Qualified Code(s): I10 - Essential (primary) hypertension (5) Obesity (BMI 30.0-34.9) Code(s): E66.9 - OBESITY, UNSPECIFIED Status: Chronic (6) Urinary retention Code(s): R33.9 - RETENTION OF URINE, UNSPECIFIED Status: Acute Comment: has patrick - Plan hemostable -: to amb with PT -: one dose kdur -: dc plan to rehab when accepted -: repeat ct brain shows resolving blood and air * . continue lantus, cozaar, metformin, lipitor, terazosin. Review of Systems - Medications/Allergies Allergies/Adverse Reactions: Allergies Allergy/AdvReac Type Severity Reaction Status Date / Time irbesartan Allergy Verified 06/23/18 09:55 lisinopril Allergy cough Verified 06/23/18 09:55 Medications: Current Medications Acetaminophen (Tylenol) 650 mg PO Q4H PRN PRN Reason: Headache/Fever or Pain Last Admin: 06/27/18 12:42 Dose: 650 mg Hydrocodone Bitart/Acetaminophen ([place] 7.5/325) 1 tab PO Q4H PRN PRN Reason: Moderate Pain (4-6) Al Hydroxide/Mg Hydroxide (Maalox) 30 ml PO Q4H PRN PRN Reason: Indigestion Albuterol/Ipratropium (Duoneb) 3 ml NEB [id number] PRN PRN Reason: SOB &/or Wheezing Atorvastatin Calcium (Lipitor) 10 mg PO HS [facility] Last Admin: 06/27/18 20:34 Dose: 10 mg Bisacodyl (Dulcolax) 10 mg IN Q12H PRN PRN Reason: Constipation Desonide (Desowen 0.05% Lotion) 0 ml TOP BID PRN PRN Reason: PSORIASIS Dextrose/Water (Dextrose 50%) 25 gm SLOW IVP PRN PRN PRN Reason: Hypoglycemia Glucagon (Glucagon) 1 mg IM PRN PRN PRN Reason: Hypoglycemia Sodium Chloride (Normal Saline 0.9%) 1,000 mls @ 75 mls/hr IV .[id number] [facility] Last Admin: 06/28/18 09:59 Dose: Not Given Insulin Glargine 40 units/ (Miscellaneous Medication) 0.4 mls @ 0 mls/hr [facility] Last Admin: 06/28/18 09:08 Dose: 0.4 mls Insulin Glargine 45 units/ (Miscellaneous Medication) 0.45 mls @ 0 mls/hr SC [facility] Last Admin: 06/27/18 20:44 Dose: 0.45 mls Dextrose/Water (D5w) 1,000 mls @ 0 mls/hr IV .Q0M PRN PRN Reason: Hypoglycemia Insulin Human Lispro (Humalog) 0 units SC .BEDTIME SLIDING SC PRN PRN Reason: Bedtime Correctional Scale Last Admin: 06/26/18 20:15 Dose: 2 unit Insulin Human Lispro (Humalog) 0 units SC .AGGRESSIVE SLIDING PRN; Protocol PRN Reason: AGGRESSIVE SLIDING SCALE Last Admin: 06/27/18 16:25 Dose: 3 unit Losartan Potassium (Cozaar) 50 mg PO QAM [facility] Last Admin: 06/28/18 09:08 Dose: 50 mg Magnesium Hydroxide (Milk Of Magnesium) 30 ml PO Q12H PRN PRN Reason: Constipation Metformin HCl (Glucophage) 1,000 mg PO BID-[facility] Last Admin: 06/28/18 09:08 Dose: 1,000 mg Morphine Sulfate (Morphine) 2 mg SLOW IVP Q1H PRN PRN Reason: Severe Pain (7-10) Last Admin: 06/24/18 20:38 Dose: 2 mg Multivitamins (Theragran) 1 tab PO DAILY [facility] Last Admin: 06/28/18 09:08 Dose: 1 tab Ondansetron HCl (Zofran) 4 mg IVP Q6H PRN PRN Reason: Nausea/Vomiting Last Admin: 06/25/18 10:07 Dose: 4 mg Pantoprazole Sodium (Protonix) 40 mg PO DAILY [facility] Last Admin: 06/28/18 09:08 Dose: 40 mg Promethazine HCl (Phenergan) 12.5 mg IM Q4H PRN PRN Reason: Nausea/Vomiting Last Admin: 06/24/18 20:38 Dose: 12.5 mg Sodium Chloride (Flush - Normal Saline) 10 ml IVF PRN PRN PRN Reason: Saline Flush Last Admin: 06/25/18 09:04 Dose: 10 ml Terazosin HCl (Hytrin) 10 mg PO HS [facility] Last Admin: 06/27/18 20:34 Dose: 10 mg Tizanidine HCl (Zanaflex) 4 mg PO Q6H PRN PRN Reason: Muscle Spasm Tramadol HCl (Ultram) 50 mg PO Q6H PRN PRN Reason: Mild Pain (1-3)
--- NOTE | 2018-06-28 11:46 | PRG ---
DATE OF SERVICE: 06/28/2018 SUBJECTIVE: Mr. Crisostomo continues to recover from his lumbar spine surgery. His delirium has improved over the past 24 hours. He is more awake, interactive, and alert. He had a repeat CT examination, which shows resolving pneumocephalus and hemorrhage. I would like to see him mobilized out of the bed today. We have also moved towards the more rigid control of his blood sugars. He will need aggressive physical therapy and occupational therapy and even potentially inpatient rehab. Job ID: [id number]
--- NOTE | 2018-06-28 13:38 | PRG ---
DATE OF SERVICE: 06/28/2018 SUBJECTIVE: Mr. Crisostomo is on the 4th day of hospital admission following laminectomy, Dr. Cardenas. His potassium is down to 3.3, which the hospitalist has already started to correct this morning. His POC glucose is 115, so he had made significant progress there. From a cognitive standpoint, he actually looks to be the best that I have seen him since we have been rounding over the weekend. He is getting himself at bedside mumble, we will repeat a head CT this morning, I discussed with the family. Job ID: [id number]
[2018-06-28] MEDS: HumaLOG 300 UNITS/3 ML VIAL SC PRN (16:08)
[2018-06-28] MEDS ORDERED: Simethicone Chewable 80 MG TAB PO PRN (17:22)
[2018-06-28] MEDS: Loperamide HCl 2 MG CAP PO PRN (17:47)
[2018-06-28] MEDS ORDERED: Sodium Chloride 0.9% 10 ML ONE (17:57)
[2018-06-28] MEDS: Insulin Glargine 45 UNITS in Pre-Filled Syringe 1 EACH SC SCH (20:56)
[2018-06-28] MEDS: Terazosin HCl 5 MG CAP PO SCH (21:02)
[2018-06-28] MEDS: Atorvastatin Calcium 10 MG TAB PO SCH (21:02)
[2018-06-29] MEDS: Loperamide HCl 2 MG CAP PO PRN ×3 (01:25→20:45)
[2018-06-29] MEDS: Sodium Chloride 0.9% 1,000 ML IV SCH ×2 (02:12→07:28)
[2018-06-29 06:53] LABS: #Eosinphils 0.2 thou/uL (0.0-0.7); #Monocytes 0.9 thou/uL (0.11-0.59); #Neutrophils 7.3 thou/uL (1.40-6.50); %Basophils 0.5 % (0.0-1.0); %Eosinophils 1.9 % (0.0-10.0); %Lymphocytes 18.7 % (21.0-51.0); Hemoglobin 12.2 g/dL (14.0-18.0); Mean Corpuscular HGB CONC 34.4 g/dL (32.0-36.0); Mean Corpuscular Volume 90.2 fL (78.0-98.0); Mean Platelet Volume 7.6 fL (7.4-10.4); Platelet Count 163 thou/uL (130-400); RBC Distribution Width 11.9 % (11.5-14.5); Red Blood Cell (RBC) Count 3.95 mill/uL (4.70-6.10); White Blood Cell (WBC) Count 10.5 thou/uL (4.8-10.8)
[2018-06-29 07:15] LABS: Anion Gap 15 mmol/L (10-20); BUN (Urea Nitrogen) 19 mg/dL (8.4-25.7); Calc. Creatinine Clearance 132 mL/min (70-130); Calcium 8.7 mg/dL (7.8-10.44); Carbon Dioxide 24 mmol/L (23-31); Chloride 100 mmol/L (98-107); Estimated GFR-MDRD Greater than 90; Glucose 122 mg/dL (83-110); Sodium 136 mmol/L (136-145)
--- NOTE | 2018-06-29 07:27 | PRG ---
DATE OF SERVICE: 06/29/2018 Mr. Crisostomo is now postop day #5 from tethered cord release with Dr. Cardenas. Repeat CT yesterday showed resolution of hemorrhage and improvement of pneumocephalus this morning, this is the absolute best that I have seen him. He is conversant and interactive, asking me questions, and is much more appropriate in regard to his answers and conversation. I would like to see him more today. We will need to push ambulation with the nursing staff and with Physical Therapy. Job ID: [id number]
[2018-06-29] MEDS: metFORMIN 500 MG TAB PO SCH ×2 (08:45→17:21)
[2018-06-29] MEDS: Losartan 25 MG TAB PO SCH (08:45)
[2018-06-29] MEDS: Insulin Glargine 40 UNITS in Pre-Filled Syringe 1 EACH SC SCH (08:46)
[2018-06-29] MEDS: Multivit, Therapeutic 1 TAB PO SCH (08:46)
[2018-06-29] MEDS: Potassium Chloride 20 MEQ TAB PO SCH ×2 (08:46→17:22)
--- NOTE | 2018-06-29 11:07 | PDOC.PN ---
- Subjective Encounter Start Date: 06/29/18 Encounter Start Time: 08:30 Subjective: had total of around 4 loose stools, no nausea -: is eating his breakfast, responds well to questions -: at bedside - Objective MAR Reviewed: Yes Vital Signs & Weight: Vital Signs (12 hours) Temp Pulse Resp BP Pulse Ox 06/29/18 07:36 98.3 F 90 22 H 120/68 96 06/29/18 04:27 97.8 F 85 20 127/75 97 06/29/18 00:25 97.8 F 87 20 125/57 L 95 Weight Weight 240 lb I&O: 06/28/18 06/29/18 06/30/18 06:59 06:59 06:59 Intake Total 1600 900 Output Total 1650 1225 Balance -50 -325 Result Diagrams: 06/29/18 06:44 06/29/18 06:44 Additional Labs: Accuchecks 06/29/18 06/28/18 06/28/18 05:30 20:55 15:26 POC Glucose 128 H 222 H 182 H 06/28/18 11:32 POC Glucose 203 H Phys Exam - Physical Examination HEENT: PERRLA, moist MMs Neck: no JVD, supple Respiratory: no wheezing, no rales Cardiovascular: RRR, no significant murmur Gastrointestinal: soft, non-tender, positive bowel sounds Musculoskeletal: no edema, pulses present Neurological: non-focal, moves all 4 limbs Dx/Plan (1) mild delerium Status: Acute (2) Status post lumbar spine surgery for decompression of spinal cord Code(s): Z98.890 - OTHER SPECIFIED POSTPROCEDURAL STATES Status: Acute Comment: s/p lumbar decompression, sacral laminectomy, untethering of cord (3) DM type 2 (diabetes mellitus, type 2) Status: Chronic Qualifiers: Diabetes mellitus care home insulin use: with intermediate teacher use Diabetes mellitus complication status: with unspecified complications Qualified Code(s) : E11.8 - Type 2 diabetes mellitus with unspecified complications; Z79.4 - petroleum terminal plant operator (current) use of insulin (4) HTN (hypertension) Code(s): I10 - ESSENTIAL (PRIMARY) HYPERTENSION Status: Chronic Qualifiers: Hypertension type: essential hypertension Qualified Code(s): I10 - Essential (primary) hypertension (5) Obesity (BMI 30.0-34.9) Code(s): E66.9 - OBESITY, UNSPECIFIED Status: Chronic (6) Urinary retention Code(s): R33.9 - RETENTION OF URINE, UNSPECIFIED Status: Acute Comment: has patrick - Plan hypokalemia sec to diarrhea, stool w/u -: unlikely to be cdiff, will check -: is awaiting rehab placement closer to his home -: continue lantus, metformin, terazosin, cozaar and lipitor -: hemo/neurostable * . Review of Systems - Medications/Allergies Allergies/Adverse Reactions: Allergies Allergy/AdvReac Type Severity Reaction Status Date / Time irbesartan Allergy Verified 06/23/18 09:55 lisinopril Allergy cough Verified 06/23/18 09:55 Medications: Current Medications Acetaminophen (Tylenol) 1,000 mg PO Q6H PRN PRN Reason: Headache/Fever or Pain Hydrocodone Bitart/Acetaminophen ([place] 7.5/325) 1 tab PO Q4H PRN PRN Reason: Moderate Pain (4-6) Al Hydroxide/Mg Hydroxide (Maalox) 30 ml PO Q4H PRN PRN Reason: Indigestion Albuterol/Ipratropium (Duoneb) 3 ml NEB [id number] PRN PRN Reason: SOB &/or Wheezing Atorvastatin Calcium (Lipitor) 10 mg PO HS [facility] Last Admin: 06/28/18 21:02 Dose: 10 mg Bisacodyl (Dulcolax) 10 mg [place] Q12H PRN PRN Reason: Constipation Desonide ([place]owen 0.05% Lotion) 0 ml TOP BID PRN PRN Reason: PSORIASIS Dextrose/Water (Dextrose 50%) 25 gm SLOW IVP PRN PRN PRN Reason: Hypoglycemia Glucagon (Glucagon) 1 mg IM PRN PRN PRN Reason: Hypoglycemia Sodium Chloride (Normal Saline 0.9%) 1,000 mls @ 75 mls/hr IV .[id number] [facility] Last Admin: 06/29/18 07:28 Dose: Not Given Insulin Glargine 40 units/ (Miscellaneous Medication) 0.4 mls @ 0 mls/hr SC QAM [facility] Last Admin: 06/29/18 08:46 Dose: 0.4 mls Insulin Glargine 45 units/ (Miscellaneous Medication) 0.45 mls @ 0 mls/hr SC [facility] Last Admin: 06/28/18 20:56 Dose: 0.45 mls Dextrose/Water (D5w) 1,000 mls @ 0 mls/hr IV .Q0M PRN PRN Reason: Hypoglycemia Insulin Human Lispro (Humalog) 0 units SC .BEDTIME SLIDING SC PRN PRN Reason: Bedtime Correctional Scale Last Admin: 06/26/18 20:15 Dose: 2 unit Insulin Human Lispro (Humalog) 0 units SC .AGGRESSIVE SLIDING PRN; Protocol PRN Reason: AGGRESSIVE SLIDING SCALE Last Admin: 06/28/18 16:08 Dose: 3 unit Loperamide HCl (Imodium) 2 mg PO Q6H PRN PRN Reason: Diarrhea/Loose Stools Last Admin: 06/29/18 01:25 Dose: 2 mg Losartan Potassium (Cozaar) [facility] Last Admin: 06/29/18 08:45 Dose: 50 mg Magnesium Hydroxide (Milk Of Magnesium) 30 ml PO Q12H PRN PRN Reason: Constipation Metformin HCl (Glucophage) 1,000 mg PO BID-[facility] Last Admin: 06/29/18 08:45 Dose: 1,000 mg Morphine Sulfate (Morphine) 2 mg SLOW IVP Q1H PRN PRN Reason: Severe Pain (7-10) Last Admin: 06/24/18 20:38 Dose: 2 mg Multivitamins (Theragran) 1 tab PO DAILY [facility] Last Admin: 06/29/18 08:46 Dose: 1 tab Ondansetron HCl (Zofran) 4 mg IVP Q6H PRN PRN Reason: Nausea/Vomiting Last Admin: 06/25/18 10:07 Dose: 4 mg Pantoprazole Sodium (Protonix) 40 mg PO DAILY [facility] Last Admin: 06/29/18 08:45 Dose: 40 mg Potassium Chloride (K-Dur) 40 meq PO BID-[facility] Last Admin: 06/29/18 08:46 Dose: 40 meq Promethazine HCl (Phenergan) 12.5 mg IM Q4H PRN PRN Reason: Nausea/Vomiting Last Admin: 06/24/18 20:38 Dose: 12.5 mg Simethicone (Mylicon Chewable) 80 mg PO [facility] PRN PRN Reason: GAS/INDIGESTION Last Admin: 06/28/18 17:47 Dose: 80 mg Sodium Chloride (Flush - Normal Saline) 10 ml IVF PRN PRN PRN Reason: Saline Flush Last Admin: 06/25/18 09:04 Dose: 10 ml Terazosin HCl (Hytrin) 10 mg PO HS [facility] Last Admin: 06/28/18 21:02 Dose: 10 mg Tizanidine HCl (Zanaflex) 4 mg PO Q6H PRN PRN Reason: Muscle Spasm Tramadol HCl (Ultram) 50 mg PO Q6H PRN PRN Reason: Mild Pain (1-3)
[2018-06-29] MEDS: HumaLOG 300 UNITS/3 ML VIAL SC PRN ×2 (11:54→20:46)
[2018-06-29] MEDS: Acetaminophen 500 MG TAB PO PRN (11:57)
[2018-06-29] MEDS: Terazosin HCl 5 MG CAP PO SCH (20:45)
[2018-06-29] MEDS: Insulin Glargine 45 UNITS in Pre-Filled Syringe 1 EACH SC SCH (20:46)
[2018-06-29] MEDS: Atorvastatin Calcium 10 MG TAB PO SCH (20:46)
[2018-06-30] MEDS: Sodium Chloride 0.9% 1,000 ML IV SCH (04:50)
[2018-06-30] MEDS: Losartan 25 MG TAB PO SCH (08:06)
[2018-06-30] MEDS: metFORMIN 500 MG TAB PO SCH (08:06)
[2018-06-30] MEDS: Insulin Glargine 40 UNITS in Pre-Filled Syringe 1 EACH SC SCH (08:06)
[2018-06-30] MEDS: Acetaminophen 500 MG TAB PO PRN ×2 (08:06→14:02)
[2018-06-30] MEDS: Multivit, Therapeutic 1 TAB PO SCH (08:06)
[2018-06-30] MEDS: Potassium Chloride 20 MEQ TAB PO SCH (08:06)
[2018-06-30 08:15] VITALS: TEMP 99.2
--- NOTE | 2018-06-30 10:39 | PDOC.PN ---
- Subjective Encounter Start Date: 06/30/18 Encounter Start Time: 09:45 Subjective: awake, oriented well -: amb yesterday with PT -: no c/o diarrhea now - Objective MAR Reviewed: Yes Vital Signs & Weight: Vital Signs (12 hours) Temp Pulse Resp BP Pulse Ox 06/30/18 08:14 99.2 F 78 20 115/68 97 06/30/18 04:29 98.9 F 89 20 118/68 97 06/29/18 23:47 98.9 F 87 22 H 113/66 98 Weight Weight 240 lb I&O: 06/29/18 06/30/18 07/01/18 06:59 06:59 06:59 Intake Total 900 1360 Output Total 1225 1650 Balance -325 -290 Result Diagrams: 06/29/18 06:44 06/29/18 06:44 Additional Labs: Accuchecks 06/30/18 06/30/18 06/29/18 10:22 05:43 20:06 POC Glucose 333 H 120 H 213 H 06/29/18 06/29/18 15:34 11:12 POC Glucose 133 H 251 H Phys Exam - Physical Examination HEENT: PERRLA, moist MMs Neck: no JVD, supple Respiratory: no wheezing, no rales Cardiovascular: RRR, no significant murmur Gastrointestinal: soft, non-tender, positive bowel sounds Musculoskeletal: no edema, pulses present Neurological: non-focal, moves all 4 limbs Psychiatric: normal affect, A&O x 3 Dx/Plan (1) mild delerium Status: Resolved (2) Status post lumbar spine surgery for decompression of spinal cord Code(s): Z98.890 - OTHER SPECIFIED POSTPROCEDURAL STATES Status: Acute Comment: s/p lumbar decompression, sacral laminectomy, untethering of cord (3) DM type 2 (diabetes mellitus, type 2) Status: Chronic Qualifiers: Diabetes mellitus layout inspector insulin use: with layout inspector use Diabetes mellitus complication status: with unspecified complications Qualified Code(s) : E11.8 - Type 2 diabetes mellitus with unspecified complications; Z79.4 - USP (current) use of insulin (4) HTN (hypertension) Code(s): I10 - ESSENTIAL (PRIMARY) HYPERTENSION Status: Chronic Qualifiers: Hypertension type: essential hypertension Qualified Code(s): I10 - Essential (primary) hypertension (5) Obesity (BMI 30.0-34.9) Code(s): E66.9 - OBESITY, UNSPECIFIED Status: Chronic (6) Urinary retention Code(s): R33.9 - RETENTION OF URINE, UNSPECIFIED Status: Acute - Plan change diet to 1800kcal, heart healthy -: continue current lantus, metformin -: may dc anytime to rehab if accepted -: is recovering well post op -: cultures are -ve, dc iv fluids * . Review of Systems - Medications/Allergies Allergies/Adverse Reactions: Allergies Allergy/AdvReac Type Severity Reaction Status Date / Time irbesartan Allergy Verified 06/23/18 09:55 lisinopril Allergy cough Verified 06/23/18 09:55 Medications: Current Medications Acetaminophen (Tylenol) 1,000 mg PO Q6H PRN PRN Reason: Headache/Fever or Pain Last Admin: 06/30/18 08:06 Dose: 1,000 mg Hydrocodone Bitart/Acetaminophen ([place] 7.5/325) 1 tab PO Q4H PRN PRN Reason: Moderate Pain (4-6) Al Hydroxide/Mg Hydroxide (Maalox) 30 ml PO Q4H PRN PRN Reason: Indigestion Albuterol/Ipratropium (Duoneb) 3 ml NEB [id number] PRN PRN Reason: SOB &/or Wheezing Atorvastatin Calcium (Lipitor) 10 mg PO [facility] Last Admin: 06/29/18 20:46 Dose: 10 mg Bisacodyl (Dulcolax) 10 mg [place] Q12H PRN PRN Reason: Constipation Desonide ([place] 0.05% Lotion) 0 ml TOP BID PRN PRN Reason: PSORIASIS Dextrose/Water (Dextrose 50%) 25 gm SLOW IVP PRN PRN PRN Reason: Hypoglycemia Glucagon (Glucagon) 1 mg IM PRN PRN PRN Reason: Hypoglycemia Insulin Glargine 40 units/ (Miscellaneous Medication) 0.4 mls @ 0 mls/hr [facility] Last Admin: 06/30/18 08:06 Dose: 0.4 mls Insulin Glargine 45 units/ (Miscellaneous Medication) 0.45 mls @ 0 mls/hr SC [facility] Last Admin: 06/29/18 20:46 Dose: 0.45 mls Dextrose/Water (D5w) 1,000 mls @ 0 mls/hr IV .Q0M PRN PRN Reason: Hypoglycemia Insulin Human Lispro (Humalog) 0 units SC .BEDTIME SLIDING SC PRN PRN Reason: Bedtime Correctional Scale Last Admin: 06/29/18 20:46 Dose: 2 unit Insulin Human Lispro (Humalog) 0 units SC .AGGRESSIVE SLIDING PRN; Protocol PRN Reason: AGGRESSIVE SLIDING SCALE Last Admin: 06/29/18 11:54 Dose: 9 unit Loperamide HCl (Imodium) 2 mg PO Q6H PRN PRN Reason: Diarrhea/Loose Stools Last Admin: 06/29/18 20:45 Dose: 2 mg Losartan Potassium (Cozaar) [facility] Last Admin: 06/30/18 08:06 Dose: 50 mg Magnesium Hydroxide (Milk Of Magnesium) 30 ml PO Q12H PRN PRN Reason: Constipation Metformin HCl (Glucophage) 1,000 mg PO BID-[facility] Last Admin: 06/30/18 08:06 Dose: 1,000 mg Morphine Sulfate (Morphine) 2 mg SLOW IVP Q1H PRN PRN Reason: Severe Pain (7-10) Last Admin: 06/24/18 20:38 Dose: 2 mg Multivitamins (Theragran) 1 tab PO DAILY [facility] Last Admin: 06/30/18 08:06 Dose: 1 tab Ondansetron HCl (Zofran) 4 mg IVP Q6H PRN PRN Reason: Nausea/Vomiting Last Admin: 06/25/18 10:07 Dose: 4 mg Pantoprazole Sodium (Protonix) 40 mg PO DAILY [facility] Last Admin: 06/30/18 08:06 Dose: 40 mg Promethazine HCl (Phenergan) 12.5 mg IM Q4H PRN PRN Reason: Nausea/Vomiting Last Admin: 06/24/18 20:38 Dose: 12.5 mg Simethicone (Mylicon Chewable) 80 mg PO [facility] PRN PRN Reason: GAS/INDIGESTION Last Admin: 06/28/18 17:47 Dose: 80 mg Sodium Chloride (Flush - Normal Saline) 10 ml IVF PRN PRN PRN Reason: Saline Flush Last Admin: 06/25/18 09:04 Dose: 10 ml Terazosin HCl (Hytrin) 10 mg PO [facility] Last Admin: 06/29/18 20:45 Dose: 10 mg Tizanidine HCl (Zanaflex) 4 mg PO Q6H PRN PRN Reason: Muscle Spasm Tramadol HCl (Ultram) 50 mg PO Q6H PRN PRN Reason: Mild Pain (1-3)
--- NOTE | 2018-06-30 10:47 | PRG ---
DATE OF SERVICE: 06/30/2018 SUBJECTIVE: Mr. Crisostomo is postop day #6 and still seems to be making significant improvements from his cognitive perspective. I do not believe he has any notable delirium at this point. Yesterday, his potassium is down at 3.0. Orders again were placed this morning, but I do not see that has been drawn yet. This will need to be continued to follow. We will place the orders for daily BMP use to check this. From a mobility standpoint, he got up yesterday and walked some in the sarah. I would like to see him up out of the bed more frequently today. We will go ahead and discontinue his Lacy catheter for mobility sake as well, also being that he has improved significantly from a cognitive standpoint, where I think he will be able to use either a bedside commode or minimum a urinal in the bed. We will continue to follow. Job ID: [id number]
[2018-06-30 11:38] VITALS: BP 109/66
[2018-06-30] MEDS: Loperamide HCl 2 MG CAP PO PRN (12:23)
[2018-06-30] MEDS: HumaLOG 300 UNITS/3 ML VIAL SC PRN (12:23)
--- NOTE | 2018-07-02 12:33 | DIS ---
DATE OF ADMISSION: 06/24/2018 DATE OF DISCHARGE: 06/30/2018 DISCHARGE DISPOSITION: Home with home health. PRIMARY DISCHARGE DIAGNOSES: Status post lumbar decompression, sacral laminectomy with untethering of spinal cord, mild delirium postop, diabetes mellitus type 2, hypertension, obesity, and urinary retention. PROCEDURES DONE DURING HOSPITALIZATION: The patient has had L4-L5 and L5-S1 laminectomies, partial facetectomies, foraminotomies for decompression of the L4, L5, and S1 nerve roots, untethering of the thickened filum terminale through a S1-S2 approach over thickened filum terminale with untethering. All of these were done on 06/24/[address] Cardenas. Ultrasound venous Doppler showed no evidence of DVT. CT brain on 06/26/2018 showed pneumocephalus with small amount of acute intracranial hemorrhage (intraventricular and subarachnoid). Had a repeat CT brain on 06/28/2018, which showed resolution of previously noted intracranial hemorrhage, improving pneumocephalus in bilateral frontal regions. Chest x-ray showed no consolidation. Blood cultures x2, no growth. Urine culture, no growth. Stool for C. diff, Shiga toxin, and Campylobacter antigens were all negative. H and H 12 and 35, platelet count 163, MCV 90. BUN 19, and creatinine 0.7. DISCHARGE PLAN: The patient to follow up with Dr. Cardenas as advised and primary care physician in 1 week. DISCHARGE MEDICATIONS: 1. Nexium 40 mg p.o. daily. 2. NovoLog 8 units subcu three times daily. 3. Levemir 45 units subcu at bedtime and 40 units subcu q.a.m. 4. Losartan 50 mg p.o. q.a.m. 5. Metformin 1000 mg p.o. twice daily. 6. Multivitamin one tablet once daily. 7. Simvastatin 20 mg p.o. at bedtime. 8. Terazosin 10 mg p.o. at bedtime. 9. Tizanidine 4 mg p.o. q.6 hourly p.r.n. ALLERGIES: ALLERGIC TO IRBESARTAN AND LISINOPRIL. BRIEF COURSE: During hospitalization, the patient initially was electively admitted by Dr. Cardenas for lumbar stenosis and associated tethered cord and thickened filum terminale for laminectomies, facetectomies, and foraminotomies with decompression and untethering of the cord, all of which were done on the by Dr. Cardenas. Postop, [facility] physicians were consulted for comanagement of medical issues. The patient has had postop delirium. He has had complete recovery from the same. He has had numerous workup to rule out infection, which are all negative. Prior to discharge, he is ambulating nearly 140 feet and his cognitive status is back to his normal state. He has remained hemodynamically stable. He needs to follow up with Dr. Cardenas as advised. Please see a [id number] documentation for the day of discharge on [employer]. Job ID: [id number]
== END 2018-06-30 15:15 | disposition home or self-care (01) | DRG 520 ==
LOC: OBSVTOIN 05:52 → INTOOBSV 05:52 → SURG A 05:52 → SJJU 14:50
PROVIDERS: ADMIT Surgery; ATTEND Surgery
PROC: 01NB0ZZ Release Lumbar Nerve, Open Approach (ICD-10-PCS; principal; 2018-06-24)
PROC: 0SB40ZZ Excision of Lumbosacral Disc, Open Approach (ICD-10-PCS; 2018-06-24)
PROC: B50DYZZ Plain Radiography of Bilateral Lower Extremity Veins using Other Contrast (ICD-10-PCS; 2018-06-26)
DX: M48.061 Spinal stenosis, lumbar region without neurogenic claudication (principal); M54.16 Radiculopathy, lumbar region; Q06.8 Other specified congenital malformations of spinal cord; E11.9 Type 2 diabetes mellitus without complications; I10 Essential (primary) hypertension; E66.9 Obesity, unspecified; Z68.30 Body mass index [BMI] 30.0-30.9, adult; R33.9 Retention of urine, unspecified
CPT/HCPCS: 36415; 36416; 70450; 71045; 76001; 80048; 80053; 83880; 85025; 85610; 85730; 87040; 87045; 87046; 87086; 87324; 87449; 87899; 93970; 96374; 96376; G8978-GP-CM; G8979-GP-CK; G8987-GO-CM; G8988-GO-CK; J1940; J2001; J2270; J2370; J2405; J2550; J2704; J3010; J3370; J3490

== ENCOUNTER 2018-07-02 16:37 | Inpatient (IN) | payer MEDICARE, OTHER ==
[2018-07-02 17:06] LABS: Lactate 1.91 mmol/L (0.50-2.20)
[2018-07-02 17:38] LABS: Hemoglobin 12.5 g/dL (14.0-18.0); Mean Corpuscular HGB CONC 34.5 g/dL (32.0-36.0); Mean Corpuscular Hemoglobin 30.8 pg (27.0-31.0); Mean Corpuscular Volume 89.2 fL (78.0-98.0); Mean Platelet Volume 8.1 fL (7.4-10.4); Platelet Count 255 thou/uL (130-400); RBC Distribution Width 11.9 % (11.5-14.5); Red Blood Cell (RBC) Count 4.07 mill/uL (4.70-6.10); White Blood Cell (WBC) Count 16.8 thou/uL (4.8-10.8)
[2018-07-02 17:50] LABS: Bilirubin Negative (Negative); Blood, Urine Small (Negative); Clarity CLOUDY (Clear); Glucose, Urine (Dipstick) 500 mg/dL (Negative); Leukocyte Large (Negative); Nitrite Negative (Negative); Protein, Urine (Dipstick) Negative (Neg-Trace); Specific Gravity, Urine 1.011 (1.002-1.036); Urobilinogen 0.2 mg/dL (0.2-1.0)
[2018-07-02 17:54] LABS: Bacteria/HPF 4+ HPF (None Seen); Hyaline Casts/LPF 0-3 HYALINE CAST LPF (0-3 Hyaline); Pathc Cast-AUWi Flag 0.14 (0-2.49); RBC/HPF 0-3 HPF (0-3); Squamous Epithelial None Seen HPF (0-3)
[2018-07-02 17:55] LABS: Band 13 % (5-11); Lymphocytes 6 % (21-51); MDiff Complete? YES; Metamyelocyte 1 % (0-0); Monocytes 5 % (0-10); Neutrophil 74 % (42-75); PLT Morphology Comment Appears Adequate; Polychromasia SLIGHT = 2-3 cells (100X) (0-2/hpf)
[2018-07-02 18:06] LABS: ALT (SGPT) 93 U/L (8-55); AST (SGOT) 33 U/L (5-34); Albumin 3.4 g/dL (3.4-4.8); Alkaline Phosphatase 171 U/L (40-150); Anion Gap 20 mmol/L (10-20); BUN (Urea Nitrogen) 14 mg/dL (8.4-25.7); Bilirubin, Total 0.9 mg/dL (0.2-1.2); Calc. Creatinine Clearance 0 mL/min (70-130); Calcium 8.8 mg/dL (7.8-10.44); Carbon Dioxide 18 mmol/L (23-31); Chloride 94 mmol/L (98-107); Estimated GFR-MDRD 77; Globulin 3.9 g/dL (2.4-3.5); Glucose 330 mg/dL (83-110); Potassium 3.5 mmol/L (3.5-5.1); Protein, Total 7.3 g/dL (5.8-8.1); Sodium 128 mmol/L (136-145)
[2018-07-02] MEDS ORDERED: cefTRIAXone\\ROCEPHIN 2 GM VIAL ONE (18:20)
[2018-07-02] MEDS ORDERED: Senokot S 8.6-50 MG TAB PO PRN (19:13)
[2018-07-02] MEDS ORDERED: HYDROcodone/Acetaminophen 5/325 mg Tablet PO PRN (19:13)
[2018-07-02] MEDS ORDERED: Acetaminophen 500 MG TAB PO PRN (19:15)
[2018-07-02] MEDS ORDERED: tiZANidine HCl 4 MG TAB PO PRN (19:15)
--- NOTE | 2018-07-02 19:39 | RAD ---
CHEST ONE VIEW: 07/02/18 COMPARISON: 07/02/18 HISTORY: Fever. FINDINGS: Normal cardiac silhouette. The pulmonary vessels and hilum are normal. Costophrenic angles are clear. No mass. No consolidation. No pneumothorax or osseous abnormalities. IMPRESSION: No acute cardiopulmonary process. POS: [facility]
[2018-07-02] MEDS ORDERED: Dextrose 5% in Water 1,000 ML IV PRN ×2 (19:45→19:46)
[2018-07-02] MEDS ORDERED: Dextrose 50% Abboject 50 ML SYRINGE SLOW IVP PRN ×2 (19:45→19:46)
[2018-07-02] MEDS ORDERED: Non-Formulary Item 1 EACH (Insulin Detemir [Levemir] 25 UNIT) SQ SCH (21:00)
[2018-07-02] MEDS ORDERED: HumaLOG 300 UNITS/3 ML VIAL SC SCH (21:00)
[2018-07-02] MEDS ORDERED: INSULIN ASPART 8 UNIT SQ SCH (21:00)
[2018-07-02] MEDS: Sodium Chloride 0.9% 1,000 ML IV SCH (22:52)
[2018-07-02] MEDS: Terazosin HCl 5 MG CAP PO SCH (22:53)
[2018-07-02] MEDS: Simvastatin 20 MG TAB PO SCH (22:53)
[2018-07-02] MEDS: Insulin Glargine 25 UNITS in Pre-Filled Syringe 1 EACH SC SCH (23:19)
[2018-07-02] MEDS: Acetaminophen 325 MG TAB PO PRN (23:50)
[2018-07-03 01:41] VITALS: BMI 31.7
[2018-07-03 02:18] LABS: Osmolality, Urine 535 mOsm/kg (300-900)
[2018-07-03 02:34] LABS: Sodium, Urine 52 mmol/L (Not Available)
--- NOTE | 2018-07-03 03:12 | HP ---
CHIEF COMPLAINT: Fever. HISTORY OF PRESENT ILLNESS: Patient is a 73-year-old male who just recently was discharged from the hospital on Thursday because he underwent a lumbar decompression and sacral laminectomy with untethering of spinal cord who presented to the hospital with fevers. The patient's who is at the bedside stated that patient while he was in the hospital had a Lacy catheter and also has been having diarrhea. Clostridium difficile and all stool studies were checked prior to discharge, which were all negative. However, patient after one day started having fevers of 102.0. The stated that patient had significant amount of weakness today, could not get out of bed, so he came into the hospital for further evaluation. The patient denies any nausea or vomiting. He has had diarrhea and has been taking Imodium for that. No chest pain or chest tightness. The patient, according to the , has been drinking and eating as usual. REVIEW OF SYSTEMS: All negative, except for the ones mentioned above in the HPI. PAST MEDICAL HISTORY: Patient has a history of: 1. Diabetes. 2. Hypertension. 3. Hyperlipidemia. 4. BPH. 5. Mild dementia. PAST SURGICAL HISTORY: He is status post lumbar decompression and sacral laminectomy with untethering of the spinal cord. SOCIAL HISTORY: Former smoker. Denies any alcohol use or drug use. He is a full code. He lives with his . ALLERGIES: HE IS ALLERGIC TO IRBESARTAN AND LISINOPRIL. HOME MEDICATIONS: His home medications have not really been changed. He was just discharged with his home medications as the following. 1. Nexium 40 mg daily. 2. NovoLog 8 units three times a day. 3. Levemir 45 units subcu at bedtime and 40 units q.a.m. 4. Losartan 50 mg q.a.m. 5. Metformin 1000 mg b.i.d. 6. Simvastatin 20 mg at bedtime. 7. Terazosin 10 mg at bedtime. 8. Tizanidine 4 mg p.o. q.6 hours p.r.n. for pain. PHYSICAL EXAMINATION: VITAL SIGNS: Vital signs are the following; temperature of 98.7, 96, 16, 154/61, and 78. GENERAL: He is awake, alert, and oriented x3. Does not appear in any distress. HEENT: Normocephalic and atraumatic. No lymphadenopathy noted. CV: S1, S2 present. No murmurs, rubs, or gallops. LUNGS: Clear to auscultation. No rhonchi or wheezes noted. ABDOMEN: Soft and nontender. Bowel sounds are present x2. EXTREMITIES: No edema. Pedal pulses are present x2. NEUROVASCULAR: No focal deficits noted. BACK: Lower back incision appears intact. There is just some mild sanguinous drainage. No erythema noted around the incision site. Sutures are still intact. SKIN: No cuts, lesions, or bruises noted. Otherwise, just for the surgical site. LABORATORY RESULTS: As of the following; sodium of 128, potassium of 3.5, BUN of 14, creatinine 0.96, sugar of 330, and bicarb of 18. WBC of , hemoglobin of 12.5 , hematocrit of 36.3, and platelets of 225. He got 13 bands. Patient did have a chest x-ray that did not indicate any acute abnormalities. He did have a urine, which indicated large leukocyte esterase and wbc's of 50 with no squamous epithelial cells. ASSESSMENT AND PLAN: Patient is a very pleasant 73-year-old male who presents to the hospital with fever. 1. Sepsis, most likely from urinary tract infection. We will start the patient on ceftriaxone. Patient also got vancomycin in the ER. We will send the urine for culture. Blood cultures are drawn. We will continue some IV hydration and continue to monitor. Lactic acid was normal. 2. Hyponatremia. We will check a serum osmolality. We will also check urine sodium and urine osmolality and continue to monitor. 3. Non-anion gap metabolic acidosis most likely secondary to his underlying problem. We will continue to monitor. 4. Hyperglycemia. We will start the patient on his home dose insulin and continue to monitor. 5. Deep venous thrombosis prophylaxis. We will put the patient on some SCDs for now and continue to monitor. Job ID: [id number]
[2018-07-03] MEDS: Insulin Regular 300 UNITS/3 ML VIAL SC PRN ×3 (05:42→20:32)
[2018-07-03 05:51] LABS: #Eosinphils 0.1 thou/uL (0.0-0.7); #Lymphocytes 2.1 thou/uL (1.20-3.40); #Monocytes 0.6 thou/uL (0.11-0.59); %Basophils 0.1 % (0.0-1.0); %Eosinophils 0.5 % (0.0-10.0); %Lymphocytes 12.2 % (21.0-51.0); %Monocytes 3.8 % (0.0-10.0); %Neutrophils 83.4 % (42.0-75.0); Hemoglobin 11.4 g/dL (14.0-18.0); Mean Corpuscular HGB CONC 34.2 g/dL (32.0-36.0); Mean Corpuscular Hemoglobin 30.7 pg (27.0-31.0); Mean Corpuscular Volume 89.9 fL (78.0-98.0); Mean Platelet Volume 7.5 fL (7.4-10.4); Platelet Count 230 thou/uL (130-400); RBC Distribution Width 11.9 % (11.5-14.5); Red Blood Cell (RBC) Count 3.71 mill/uL (4.70-6.10); White Blood Cell (WBC) Count 16.8 thou/uL (4.8-10.8)
[2018-07-03 06:04] LABS: Anion Gap 14 mmol/L (10-20); BUN (Urea Nitrogen) 14 mg/dL (8.4-25.7); Calc. Creatinine Clearance 115 mL/min (70-130); Calcium 7.9 mg/dL (7.8-10.44); Carbon Dioxide 24 mmol/L (23-31); Chloride 97 mmol/L (98-107); Estimated GFR-MDRD Greater than 90; Glucose 305 mg/dL (83-110); Potassium 3.3 mmol/L (3.5-5.1); Sodium 132 mmol/L (136-145)
[2018-07-03] MEDS ORDERED: Non-Formulary Item 1 EACH (Esomeprazole Magnesium [Nexium] 40 MG) PO SCH (09:00)
[2018-07-03] MEDS ORDERED: Prevnar 13-Val Conj/PF 0.5 ML SYRINGE IM ONE (09:00)
[2018-07-03] MEDS: Multivit, Therapeutic 1 TAB PO SCH (10:27)
[2018-07-03] MEDS: Losartan 25 MG TAB PO SCH (10:27)
[2018-07-03] MEDS ORDERED: Insulin Glargine 45 UNITS in Pre-Filled Syringe 1 EACH SC SCH (10:45)
--- NOTE | 2018-07-03 12:44 | PDOC.PN ---
- Subjective Encounter Start Date: 07/03/18 Encounter Start Time: 10:00 Subjective: pt up in bed no complains - Objective Resuscitation Status - Order Detail: 07/02/18 19:13 Resuscitation Status Routine Resuscitation Status: FULL: Full Resuscitation Vital Signs & Weight: Vital Signs (12 hours) Temp Pulse Resp BP Pulse Ox 07/03/18 07:55 98.9 F 82 16 109/58 L 93 L 07/03/18 03:41 99.1 F 77 20 100/50 L 95 07/03/18 02:01 99.5 F Weight Weight 221 lb I&O: 07/02/18 07/03/18 07/04/18 06:59 06:59 06:59 Intake Total 1300 Output Total 1200 Balance 100 Result Diagrams: 07/03/18 05:20 07/03/18 05:20 Additional Labs: Accuchecks 07/03/18 07/03/18 07/02/18 10:03 05:36 23:19 POC Glucose 403 H 343 H 338 H Phys Exam - Physical Examination Neck: no nodes, no JVD, supple, full ROM Respiratory: no wheezing, no rales, no rhonchi, wheezing present, clear to auscultation bilateral Cardiovascular: RRR, no significant murmur, no rub, gallop, irregular Gastrointestinal: soft, positive bowel sounds mild pain on palpation of right lower abd area Dx/Plan (1) Sepsis Code(s): A41.9 - SEPSIS, UNSPECIFIED ORGANISM Status: Acute (2) UTI (urinary tract infection) Status: Acute (3) Status post lumbar spine surgery for decompression of spinal cord Code(s): Z98.890 - OTHER SPECIFIED POSTPROCEDURAL STATES Status: Acute Comment: s/p lumbar decompression, sacral laminectomy, untethering of cord (4) Urinary retention Code(s): R33.9 - RETENTION OF URINE, UNSPECIFIED Status: Acute - Plan will continue abx for now -: will get abd/pel ct * . Review of Systems - Review of Systems Respiratory: negative: Cough, Dry, Shortness of Breath, Hemoptysis, SOB with Excertion, Pleuritic Pain, Sputum, Wheezing Cardiovascular: negative: chest pain, palpitations, orthopnea, paroxysmal nocturnal dyspnea, edema, light headedness, other Gastrointestinal: negative: Nausea, Vomiting, Abdominal Pain, Diarrhea, Constipation, Melena, Hematochezia, Other - Medications/Allergies Allergies/Adverse Reactions: Allergies Allergy/AdvReac Type Severity Reaction Status Date / Time irbesartan Allergy Verified 06/23/18 09:55 lisinopril Allergy cough Verified 06/23/18 09:55 Medications: Current Medications Acetaminophen (Tylenol) 650 mg PO Q4H PRN PRN Reason: Headache/Fever/Mild Pain (1-3) Last Admin: 07/02/18 23:50 Dose: 650 mg Acetaminophen (Tylenol) 1,000 mg PO Q6H PRN PRN Reason: Mild Pain (1-3) Hydrocodone Bitart/Acetaminophen (Strawberry 5/325) 1 tab PO Q4H PRN PRN Reason: Moderate Pain (4-6) Dextrose/Water (Dextrose 50%) 25 gm SLOW IVP PRN PRN PRN Reason: Hypoglycemia Glucagon (Glucagon) 1 mg IM PRN PRN PRN Reason: Hypoglycemia Ceftriaxone Sodium 1 gm/ (Sodium Chloride) 100 mls @ 200 mls/hr IVPB Q24HR LOIS Dextrose/Water (D5w) 1,000 mls @ 0 mls/hr IV .Q0M PRN PRN Reason: Hypoglycemia Insulin Glargine 25 units/ (Miscellaneous Medication) 0.25 mls @ 0 mls/hr SC HS [facility] Last Admin: 07/02/18 23:19 Dose: 0.25 mls Sodium Chloride (Normal Saline 0.9%) 1,000 mls @ 50 mls/hr IV .Q20H [facility] Last Admin: 07/02/18 22:52 Dose: 1,000 mls Insulin Glargine 45 units/ (Miscellaneous Medication) 0.45 mls @ 0 mls/hr SC QAM [facility] Insulin Glargine 45 units/ (Miscellaneous Medication) 0.45 mls @ 0 mls/hr SC NOW [facility] Stop: 07/03/18 12:45 Insulin Human Regular (Humulin R) 0 units SC .MILD SLIDING SCALE PRN PRN Reason: Mild Correctional Scale Last Admin: 07/03/18 05:42 Dose: 5 unit Losartan Potassium (Cozaar) 50 mg PO QAM [facility] Last Admin: 07/03/18 10:27 Dose: 50 mg Multivitamins (Theragran) 1 tab PO DAILY [facility] Last Admin: 07/03/18 10:27 Dose: 1 tab Pantoprazole Sodium (Protonix) 40 mg PO DAILY [facility] Last Admin: 07/03/18 10:28 Dose: 40 mg Potassium Chloride (K-Dur) 40 meq PO 1200,1600 [facility] Stop: 07/03/18 16:01 Senna/Docusate Sodium (Senokot S) 2 tab PO BIDPRN PRN PRN Reason: Constipation Simvastatin (Zocor) 20 mg PO HS [facility] Last Admin: 07/02/18 22:53 Dose: 20 mg Sodium Chloride (Flush - Normal Saline) 10 ml IVF Q12HR [facility] Last Admin: 07/03/18 10:32 Dose: Not Given Sodium Chloride (Flush - Normal Saline) 10 ml IVF PRN PRN PRN Reason: Saline Flush Terazosin HCl (Hytrin) 10 mg PO HS [facility] Last Admin: 07/02/18 22:53 Dose: 10 mg Tizanidine HCl (Zanaflex) 4 mg PO Q6H PRN PRN Reason: Muscle Spasm
[2018-07-03] MEDS: Potassium Chloride 20 MEQ TAB PO SCH ×2 (12:46→16:20)
--- NOTE | 2018-07-03 14:19 | CON ---
DATE OF CONSULTATION: ATTENDING PHYSICIAN: Blayne Mcfarlane MD HISTORY OF PRESENT ILLNESS: The patient is a 73-year-old male with past medical history of hypertension, hyperlipidemia, diabetes, dementia, BPH, who is 8 days status post L4-S1 decompression with release of tethered cord. Following his surgery, the patient did have complications of delirium and fever. Cultures were done at that time of the blood, urine and stool, which were negative. CT head was also done, which showed a small pneumocephalus and subarachnoid blood products, which was felt likely to be related to his spine surgery. This resolved with repeat CT as well as the patient's cognitive status. The patient's fever also improved during his course. He was discharged to home on 06/30/2018 and was reportedly doing well per his until 07/02/2018 when he had return of his fever as high as 102 at home and development of generalized weakness, as well as urinary incontinence. He was brought to the emergency department for repeat evaluation of these symptoms and was found to have a urinalysis suggestive of urinary tract infection as well as an elevated WBC with left shift. He was admitted to the hospitalist service for further treatment of his medical issues and we are consulting on the case. His reports his cognition appears to be at his baseline. He did have some diarrhea during his initial hospital stay, but this is improved. He has had no bowel movement since yesterday. He denies chest pain, cough, shortness of breath, or any other associated symptoms. PAST MEDICAL HISTORY: Hypertension, hyperlipidemia, diabetes, BPH, and dementia. PAST SURGICAL HISTORY: He is 8 days status post lumbar decompression at L4-S1 with tethered cord release. SOCIAL HISTORY: Lives at home with his . Former smoker. He does not drink or use any drugs. ALLERGIES: ALLERGIC TO LISINOPRIL, IRBESARTAN. REVIEW OF SYSTEMS: Per HPI. PHYSICAL EXAMINATION: VITAL SIGNS: Temperature is currently 98.9, heart rate is 82, respiration is 16 , the patient is 93% on room air, BP is 109/58. HEENT: Head, normocephalic, atraumatic. Eyes, PERRLA. Extraocular movements intact. ENT, oral mucosa is pink, intact, and moist. The patient has normal voice. CARDIAC: Regular rate and rhythm. LUNGS: The patient is breathing comfortably with symmetric chest expansion. ABDOMEN: Protuberant, soft, nontender. MUSCULOSKELETAL: Free active range of motion of all extremities. No focal motor weakness. BACK: He has an incision over the lower lumbar spine. Sutures are intact. No redness or drainage is appreciated. NEURO: A and O x4. No focal neurologic deficits are appreciated. ASSESSMENT AND PLAN: This is a 73-year-old male, status post L4-S1 decompression and release of tethered cord, who returns to the hospital for fever and generalized weakness. His urinalysis appears consistent with urinary tract infection. Additionally, he has elevated WBC with left shift. His incision remains intact and has no signs of infection at this time. New cultures have been sent and pt is currently getting IV abx for UTI. We will continue to monitor this closely as well as follow along with his progress. We will continue defer to treatment of what appears to be urinary tract infection per the medical team. Job ID: [id number] [facility]
[2018-07-03] MEDS: Acetaminophen 325 MG TAB PO PRN (14:49)
--- NOTE | 2018-07-03 14:57 | CON ---
DATE OF CONSULTATION: HISTORY OF PRESENT ILLNESS: The patient is seen and examined. I agree with Tessy Marks's evaluation on 07/03/2018. Mr. Crisostomo is a 73-year-old man, who 10 days ago underwent lumbar laminectomy with Dr. Cardenas. He did have some fever postoperatively as well as some modest delirium, felt was discharged successfully to home. He was readmitted with high fever and urosepsis. Examination of his wound reveals it is clean, dry, and intact and there are no manifestations or suggestion of infection. Mr. Crisostomo is doing much better after institution of antibiotics seems to be appropriate and neurological intact. I have a low suspicion of any involvement of his wound and suspect that we are barking up the right treated with management of the UTI. I appreciate the excellent medical care and agree with the current plan. Indication. Job ID: [id number]
--- NOTE | 2018-07-03 16:06 | CT ---
NONCONTRAST CT ABDOMEN AND PELVIS: 07/03/18 HISTORY: Abdominal pain, urinary retention after voiding. Abdominal pain after voiding. The patient complains of right lower abdominal pain. History of cholecystectomy. COMPARISON: CT pelvis on 03/09/18. FINDINGS: There is minimal dependent bibasilar atelectasis. Post cholecystectomy changes are noted. There is question of a subcentimeter too small to characterize hypodense lesion within the superior p ole left kidney. There is also a subcentimeter hypodense lesion too small to characterize in the mid portion right kidney. No renal or ureteral calculi are seen bilaterally, and there is no hydronephros is. Gas is present within the urinary bladder which may be related to recent catheterization. The uri nary bladder is only mildly distended. Vascular calcifications are seen in the abdominal aorta and il iac arteries. The liver, spleen, pancreas, and bilateral adrenal glands demonstrate a grossly normal nonenhanced CT appearance. The appendix is visualized and normal in caliber. No dilated loops of small bowel are seen. Postsurgical changes lower lumbar spine are seen related to laminectomy defects. There are degenerative changes seen in spine. IMPRESSION: 1. No acute findings are seen on this nonenhanced CT scan of the abdomen and pelvis. 2. Cholecystectomy. 3. Subcentimeter too small to characterize hypodense lesion in each kidney. No renal or ureteral calculi are seen bilaterally. 4. No CT evidence of appendicitis. 5. Gas within the urinary bladder which may be related to recent catheterization, clinical corre lation is recommended. 6. Fat containing bilateral inguinal canals. 7. Subcentimeter low density focus in the left aspect of the L5 vertebral body which is stable c ompared to the prior exam and has a nonaggressive appearance. POS: [facility]
[2018-07-03] MEDS: Sodium Chloride 0.9% 1,000 ML IV SCH (17:03)
[2018-07-03] MEDS ORDERED: cefTRIAXone\\ROCEPHIN 1 GM in Sodium Chloride 0.9% 100 ML IVPB SCH (18:00)
[2018-07-03] MEDS: Insulin Glargine 25 UNITS in Pre-Filled Syringe 1 EACH SC SCH (20:27)
[2018-07-03] MEDS: Terazosin HCl 5 MG CAP PO SCH (20:28)
[2018-07-03] MEDS: Simvastatin 20 MG TAB PO SCH (20:31)
[2018-07-04] MEDS: Insulin Regular 300 UNITS/3 ML VIAL SC PRN (06:18)
[2018-07-04] MEDS ORDERED: Insulin Glargine 45 UNITS in Pre-Filled Syringe 1 EACH SC SCH (09:00)
[2018-07-04] MEDS: Multivit, Therapeutic 1 TAB PO SCH (09:04)
[2018-07-04] MEDS: Losartan 25 MG TAB PO SCH (09:04)
[2018-07-04] MEDS ORDERED: INSULIN DETEMIR 40 UNIT SQ SCH (10:11)
[2018-07-04 10:24] LABS: #Eosinphils 0.1 thou/uL (0.0-0.7); #Lymphocytes 1.5 thou/uL (1.20-3.40); #Monocytes 0.5 thou/uL (0.11-0.59); #Neutrophils 7.8 thou/uL (1.40-6.50); %Basophils 0.2 % (0.0-1.0); %Lymphocytes 15.4 % (21.0-51.0); %Monocytes 4.7 % (0.0-10.0); %Neutrophils 78.7 % (42.0-75.0); Hemoglobin 10.3 g/dL (14.0-18.0); Mean Corpuscular HGB CONC 33.3 g/dL (32.0-36.0); Mean Corpuscular Hemoglobin 29.9 pg (27.0-31.0); Mean Corpuscular Volume 89.9 fL (78.0-98.0); Mean Platelet Volume 7.3 fL (7.4-10.4); Platelet Count 190 thou/uL (130-400); RBC Distribution Width 11.9 % (11.5-14.5); Red Blood Cell (RBC) Count 3.44 mill/uL (4.70-6.10); White Blood Cell (WBC) Count 9.9 thou/uL (4.8-10.8)
[2018-07-04 10:48] LABS: Anion Gap 13 mmol/L (10-20); BUN (Urea Nitrogen) 10 mg/dL (8.4-25.7); Calc. Creatinine Clearance 107 mL/min (70-130); Calcium 8.2 mg/dL (7.8-10.44); Carbon Dioxide 24 mmol/L (23-31); Chloride 99 mmol/L (98-107); Estimated GFR-MDRD Greater than 90; Glucose 375 mg/dL (83-110); Potassium 3.7 mmol/L (3.5-5.1); Sodium 132 mmol/L (136-145)
[2018-07-04 11:23] VITALS: BP 105/55; TEMP 97.5
[2018-07-04] MEDS: Acetaminophen 325 MG TAB PO PRN (11:44)
[2018-07-04] MEDS ORDERED: Insulin Regular 300 UNITS/3 ML VIAL SC SCH (12:00)
[2018-07-04] MEDS ORDERED: metFORMIN 500 MG TAB PO SCH (17:00)
[2018-07-04] MEDS ORDERED: Insulin Glargine 40 UNITS in Pre-Filled Syringe 1 EACH SC SCH (21:00)
[2018-07-05] MEDS ORDERED: Losartan 25 MG TAB PO SCH (09:00)
--- NOTE | 2018-07-05 12:53 | DIS ---
DATE OF ADMISSION: 07/02/2018 DATE OF DISCHARGE: 07/04/2018 DISCHARGE DIAGNOSES: 1. Sepsis. 2. Urinary tract infection. 3. Status post lumbar spine surgery with decompression. 4. Urinary retention. 5. Hypodense lesion to each kidney. HOSPITAL COURSE: The patient is a very pleasant 73-year-old male who presents to the hospital with fever. The patient at that time initially underwent a laboratory work, which indicated a significant urinary tract infection. At this time, the patient was admitted in, also Neurosurgery was consulted given the patient's recent surgery. Surgical incision appeared to be clean and intact. His urine culture came back positive to E. coli, which was sensitive to most of the antibiotics. The patient was discharged home on Levaquin for an additional 5 days. However, during the hospital stay, he continued to have some abdominal discomfort. At this time, a noncontrast abdominal CT scan was ordered, which indicated that he did have a subcentimeter, too small to characterize hypodense lesion in each of the kidney. I did tell the patient and the patient's family that he will need a followup ultrasound in the next 6 months to make sure that those lesions are only a cyst or further workup will be required as an outpatient. The patient and family did understand that. DISCHARGE MEDICATIONS: He will be going home with: 1. Levaquin 500 mg daily. 2. Losartan 25 mg q.a.m. He normally was on 50 mg, I decreased it to 25 since his blood pressure has been running low in the hospital. 3. Terazosin 10 mg at bedtime. 4. Zanaflex 4 mg p.r.n. 5. Nexium 40 mg daily. 6. Insulin 8 units t.i.d. 7. Levemir 45 units at bedtime. 8. Simvastatin 20 mg at bedtime. 9. Levemir 40 units in the morning. 10. Metformin 1000 mg p.o. b.i.d. DISPOSITION: Again, he will be discharged home. FOLLOWUP: He will follow up with physical therapy as an outpatient and he will follow up with Neurosurgery and primary care doctor. PHYSICAL EXAMINATION: VITAL SIGNS: Temperature of 99.1, pulse rate 78, respirations 17, oxygen saturation 94% on room air, blood pressure 105/55. GENERAL: He is awake, alert, and oriented x3. Does not appear to be in distress. CV: S1 and S2 present. No murmurs, rubs, or gallops. ABDOMEN: Soft and nontender. Bowel sounds are present x2. EXTREMITIES: No edema. Pedal pulses are present x2. DISCHARGE INSTRUCTIONS: Again, he will be discharged to home. He will follow up with his primary care doctor and Surgery as an outpatient. Job ID: [id number]
== END 2018-07-04 14:00 | disposition home or self-care (01) | DRG 872 ==
LOC: ERS 16:37 → 2NO 20:02
PROVIDERS: ADMIT Internal Medicine; ATTEND Internal Medicine
DX: A41.9 Sepsis, unspecified organism (principal); E87.1 Hypo-osmolality and hyponatremia; E87.2 Acidosis; N39.0 Urinary tract infection, site not specified; R19.7 Diarrhea, unspecified; E11.65 Type 2 diabetes mellitus with hyperglycemia; N28.9 Disorder of kidney and ureter, unspecified; I10 Essential (primary) hypertension; F03.90 Unspecified dementia, unspecified severity, without behavioral disturbance, psychotic disturbance, mood disturbance, and anxiety; B96.20 Unspecified Escherichia coli [E. coli] as the cause of diseases classified elsewhere; E78.5 Hyperlipidemia, unspecified; N40.1 Benign prostatic hyperplasia with lower urinary tract symptoms; R33.9 Retention of urine, unspecified; Z98.890 Other specified postprocedural states; Z87.891 Personal history of nicotine dependence; Z79.4 Long term (current) use of insulin; Z88.8 Allergy status to other drugs, medicaments and biological substances
CPT/HCPCS: 36415; 36416; 71045; 74176; 80048; 80053; 81003; 81015; 83605; 83930; 83935; 84300; 85025; 87040; 87077; 87086; 87186; 93005; 96365; 96367; G8978-GP-CN; G8979-GP-CJ; J0696; J1815; J3370; J7050

== ENCOUNTER 2018-07-23 15:07 | Inpatient (IN) | payer MEDICARE, OTHER ==
--- NOTE | 2018-07-23 16:17 | CT ---
HEAD CT WITHOUT CONTRAST: Date: 07/24/17 HISTORY: Status post surgery. CSF leak. COMPARISON: 06/28/18. FINDINGS: No parenchymal hemorrhage. No extra-axial hematoma. No midline shift. Basilar cisterns are patent. Br ain volume, age-appropriate. Cortical yañez-white matter differentiation preserved. No evidence of hydrocephalus. Adequate aeration of the sinuses and mastoid air cells. Calvarium is intact. IMPRESSION: No acute intracranial process. POS: [facility]
[2018-07-23] MEDS ORDERED: Lidocaine 1% (PF) 30 ML VIAL ONE ×2 (16:32→17:27)
[2018-07-23 16:54] LABS: Hemoglobin 12.3 g/dL (14.0-18.0); Mean Corpuscular HGB CONC 32.3 g/dL (32.0-36.0); Mean Corpuscular Hemoglobin 29.2 pg (27.0-31.0); Mean Corpuscular Volume 90.4 fL (78.0-98.0); RBC Distribution Width 12.8 % (11.5-14.5); Red Blood Cell (RBC) Count 4.21 mill/uL (4.70-6.10); White Blood Cell (WBC) Count 7.1 thou/uL (4.8-10.8)
[2018-07-23] MEDS ORDERED: Bisacodyl 5 MG TAB PO PRN (17:05)
[2018-07-23] MEDS ORDERED: Senokot S 8.6-50 MG TAB PO PRN (17:05)
[2018-07-23 17:12] LABS: ALT (SGPT) 15 U/L (8-55); AST (SGOT) 13 U/L (5-34); Albumin 3.7 g/dL (3.4-4.8); Alkaline Phosphatase 52 U/L (40-150); Anion Gap 15 mmol/L (10-20); BUN (Urea Nitrogen) 14 mg/dL (8.4-25.7); Bilirubin, Total 0.5 mg/dL (0.2-1.2); Calc. Creatinine Clearance 0 mL/min (70-130); Calcium 8.9 mg/dL (7.8-10.44); Carbon Dioxide 21 mmol/L (23-31); Chloride 107 mmol/L (98-107); Estimated GFR-MDRD Greater than 90; Globulin 2.9 g/dL (2.4-3.5); Glucose 109 mg/dL (83-110); Protein, Total 6.6 g/dL (5.8-8.1); Sodium 139 mmol/L (136-145)
[2018-07-23 17:17] LABS: #Basophils 0.1 thou/uL (0.0-0.2); #Eosinphils 0.2 thou/uL (0.0-0.7); #Lymphocytes 2.7 thou/uL (1.20-3.40); #Monocytes 0.6 thou/uL (0.11-0.59); #Neutrophils 3.5 thou/uL (1.40-6.50); %Basophils 0.8 % (0.0-1.0); %Eosinophils 3.1 % (0.0-10.0); %Lymphocytes 37.9 % (21.0-51.0); %Monocytes 8.4 % (0.0-10.0); %Neutrophils 49.8 % (42.0-75.0); Mean Platelet Volume 7.9 fL (7.4-10.4); Platelet Count 106 thou/uL (130-400); Platelet Morphology Comment Appears Decreased
[2018-07-23 17:27] LABS: Bilirubin Negative (Negative); Blood, Urine Negative (Negative); Clarity CLEAR (Clear); Glucose, Urine (Dipstick) Negative (Negative); Leukocyte Negative (Negative); Nitrite Negative (Negative); Protein, Urine (Dipstick) Negative (Neg-Trace); Specific Gravity, Urine 1.008 (1.002-1.036); Urobilinogen 0.2 mg/dL (0.2-1.0); pH, Urine 6.5 (5.0-9.0)
[2018-07-23] MEDS: Sodium Chloride 0.9% 1,000 ML IV SCH ×2 (18:44→21:07)
[2018-07-23] MEDS: CEFAZOLIN 2 GM/50 ML-DEXTROSE 2 GM in Premix Bag 1 BAG IVPB SCH (21:07)
[2018-07-23] MEDS: HYDROcodone/Acetaminophen 5/325 mg Tablet PO PRN (21:11)
[2018-07-23] MEDS ORDERED: CEFAZOLIN 2 GM in Sodium Chloride 0.9% 100 ML IVPB SCH (22:00)
[2018-07-23] MEDS ORDERED: Dextrose 5% in Water 1,000 ML IV PRN (22:02)
[2018-07-23] MEDS ORDERED: Dextrose 50% Abboject 50 ML SYRINGE IVP PRN (22:02)
[2018-07-23] MEDS: Insulin Regular 300 UNITS/3 ML VIAL SC PRN (22:15)
[2018-07-23 22:31] VITALS: BMI 31.6
--- NOTE | 2018-07-24 00:23 | HP ---
This is a 30-minute initial patient evaluation of which greater than 50% of the exam was spent in counseling and coordinating the patient's care. Remainder of the exam was spent in reviewing the patient's medical records and review of appropriate imaging studies. CHIEF COMPLAINT: Lumbar wound drainage. HISTORY OF PRESENT ILLNESS: Mr. Crisostomo is a pleasant 73-year-old male who presents as a transfer from [facility] with complaints of lumbar wound drainage. The patient underwent L4-S1 laminectomy and untethering of spinal cord intradurally on 06/24/2018. The patient was doing well during his first postoperative check roughly 2-1/2 weeks postop. He states on Thursday he was pushing his recliner across the room when he felt a pop into his back. Last night, he noticed a small amount of clear drainage from his incision. He was instructed to keep the incision clean, dry, and covered with a dressing and started on prophylactic Keflex. His drainage increased significantly and he experienced postural headaches which prompted him to go to the emergency room. He states when lying flat, his headaches are improved and he is unable to even sit due to severe headache. He has remained off his aspirin. He states overall though he was improving in regard to his lumbar surgery and still denies back has complete improvement and almost complete resolution of his back pain. He also has resolution of his bilateral lower extremity symptoms. Overall, other than his headache and wound drainage, the patient states that he feels better now than he did preoperatively. He denies nausea, vomiting, or chills. Review of the patient's head CT shows complete resolution of pneumocephalus noted. Head CT on 06/26 and 07/03. He also has no significant increase in his ventricular size to indicate hydrocephalus at this time. PHYSICAL EXAMINATION: The patient is awake, alert, appropriate. GCS is 15. He has good strength in the bilateral upper and bilateral lower extremities with intact sensation to light touch throughout. He did not ambulate into the ER and he was brought in by ambulance given again postural headache. His incision is covered with a dressing, it is saturated with clear fluid though just slightly blood-tinged. There does not appear to be any obvious halo signing from the drainage. Drainage can be expressed from the bottom half of the incision where some superficial wound dehiscence is noted. Otherwise, there is scabbing throughout the incision, but the superior aspect of the incision is almost completely healed. The patient does not have significant surrounding erythema and slight amount of fibrinous exudate at the places of dehiscence, but no obvious signs of infection. The drainage is not purulent. There is no surrounding erythema and no significant tenderness to palpation when drainage is expressed, although there is no active draining when the patient is still with movement. There are drops of drainage from the incision. IMPRESSION: Status post lumbar laminectomy with untethering of spinal cord intradurally on June 24, 2018, now with wound drainage, likely consistent with cerebrospinal fluid leak. PLAN: I have discussed the patient's case and imaging with Dr. Cardenas. He has also examined the patient and discussed his case in great detail with the family. At this time, we will over study incision to help prevent leakage. Should he begin to leak from the incision with increased activity, he may need to consider placement of lumbar drain. Also should hydrocephalus present on repeat head CT that will be ordered tomorrow, he may need a lumbar drain. In the long run, the patient may require a shunt should he develop hydrocephalus and dependence on his lumbar drain. However, at this time, we will admit the patient to the surgical unit and keep him on bedrest with head of bed flat. He may roll to his side to eat. Provide some pain medications and start him on some Ancef. We will repeat head CT in the morning and our colleagues, Blayne Chatman and Dr. Kelley who are on-call this week and will graciously review this for us. I would like the patient to be n.p.o. at midnight. We will check and follow up on the labs drawn in the emergency room and follows a UA. I should also note that the patient has had significant improvement in his bowel frequency and he now has complete control of his . Please call with any changes in the patient's neurologic status, otherwise again we will oversew the wound and monitor the patient's headache tomorrow morning as well as repeat head CT. Job ID: [id number]
[2018-07-24] MEDS: CEFAZOLIN 2 GM/50 ML-DEXTROSE 2 GM in Premix Bag 1 BAG IVPB SCH ×3 (05:26→21:08)
[2018-07-24] MEDS: HYDROcodone/Acetaminophen 5/325 mg Tablet PO PRN ×5 (05:29→23:24)
[2018-07-24] MEDS: Ondansetron PF 4 MG/2 ML Vial IVP PRN (08:05)
[2018-07-24] MEDS: traMADol HCl 50 MG TAB PO PRN ×2 (08:06→23:24)
[2018-07-24] MEDS: metFORMIN 500 MG TAB PO SCH ×2 (08:09→17:56)
[2018-07-24] MEDS: HumaLOG 300 UNITS/3 ML VIAL SC SCH ×3 (08:10→17:56)
--- NOTE | 2018-07-24 08:54 | PRG ---
DATE OF SERVICE: 07/24/2018 SUBJECTIVE: Mr. Crisostomo this morning is lying quite comfortably in bed. There is some mild judit-incisional discomfort around where they oversewed them yesterday. Looking at the bandage and the incisional region of his back, he does not have any wetness on his bandage nor is there jhonny drainage from the incision site. He unfortunately has not yet had his CAT scan, but that is scheduled this morning at 7:00 a.m. I explained to him that we will need to see what that shows before we take any next steps. We will keep him flat for now after CT scan, will follow back with course of action. Otherwise, the patient is doing well. Job ID: [id number]
--- NOTE | 2018-07-24 08:59 | CT ---
CT BRAIN: Date: 07/24/18 PROVIDED CLINICAL HISTORY: Headache. FINDINGS: Comparison with 07/23/18. The ventricular system is unchanged in size and morphology. There is no evidence for intracranial hem orrhage or mass effect. The extracranial soft tissues and osseous structures demonstrate no acute fin dings. IMPRESSION: No evidence for intracranial hemorrhage or mass effect. POS: [facility]
[2018-07-24] MEDS: Insulin Glargine 40 UNITS in Pre-Filled Syringe 1 EACH SC SCH (10:25)
[2018-07-24] MEDS: Insulin Glargine 45 UNITS in Pre-Filled Syringe 1 EACH SC SCH (21:07)
[2018-07-25] MEDS: CEFAZOLIN 2 GM/50 ML-DEXTROSE 2 GM in Premix Bag 1 BAG IVPB SCH ×3 (06:54→21:04)
[2018-07-25] MEDS: HYDROcodone/Acetaminophen 5/325 mg Tablet PO PRN ×4 (06:54→21:04)
[2018-07-25] MEDS: metFORMIN 500 MG TAB PO SCH ×2 (08:44→16:43)
[2018-07-25] MEDS: HumaLOG 300 UNITS/3 ML VIAL SC SCH ×3 (08:44→16:41)
[2018-07-25] MEDS: Insulin Glargine 40 UNITS in Pre-Filled Syringe 1 EACH SC SCH (08:44)
[2018-07-25] MEDS: Sodium Chloride 0.9% 1,000 ML IV SCH ×2 (09:24→14:08)
[2018-07-25 09:41] LABS: Anion Gap 14 mmol/L (10-20); BUN (Urea Nitrogen) 11 mg/dL (8.4-25.7); Calc. Creatinine Clearance 137 mL/min (70-130); Calcium 8.5 mg/dL (7.8-10.44); Carbon Dioxide 26 mmol/L (23-31); Chloride 101 mmol/L (98-107); Estimated GFR-MDRD Greater than 90; Glucose 131 mg/dL (83-110); Potassium 3.9 mmol/L (3.5-5.1); Sodium 137 mmol/L (136-145)
--- NOTE | 2018-07-25 11:10 | PRG ---
DATE OF SERVICE: 07/25/2018 SUBJECTIVE: Mr. Crisostomo this morning is doing well. He has still been lying flat overnight. We will go ahead and sit him up this morning as his incision has remained dry. There is no drainage that I can see. There is no wetness on the bandage. If he tolerates this well, we will move to sitting up at the bedside around lunch time, and if that progresses, we will get him up in the afternoon. It is possible he can go home today, but potentially will be tomorrow. His sodium was 139 on the , so we will recheck that to make sure that we are not trending down as at the last admission that we had with him, hyponatremia became an issue. In any case, he looks to be doing very well. Job ID: [id number]
[2018-07-25] MEDS: Insulin Glargine 45 UNITS in Pre-Filled Syringe 1 EACH SC SCH (21:05)
[2018-07-26] MEDS: CEFAZOLIN 2 GM/50 ML-DEXTROSE 2 GM in Premix Bag 1 BAG IVPB SCH ×3 (05:49→21:08)
[2018-07-26] MEDS: Sodium Chloride 0.9% 1,000 ML IV SCH ×2 (05:50→10:15)
[2018-07-26] MEDS: metFORMIN 500 MG TAB PO SCH ×2 (08:01→17:02)
[2018-07-26] MEDS: HumaLOG 300 UNITS/3 ML VIAL SC SCH ×3 (08:01→17:05)
[2018-07-26] MEDS: Insulin Glargine 40 UNITS in Pre-Filled Syringe 1 EACH SC SCH (09:11)
--- NOTE | 2018-07-26 09:55 | PRG ---
DATE OF SERVICE: 07/26/2018 SUBJECTIVE: Mr. Crisostomo was readmitted Thursday for CSF leak. This was oversewn in the ER and this morning, there is a very trace amount of CSF drainage on his dressing. While it is certainly better, he clinically appears to be doing really well with no evidence of CSF hypotension symptoms and still concerned about persistent CSF leak. It sounds like this occurred last week when sutures were essentially busted while the patient was trying to move the recliner not even 1 month out from surgery. I do not suspect infection here as there is no evidence of that on his laboratory data. He has been afebrile. We will work towards MRI of the lumbar spine today and plan for CSF leak repair tomorrow in the operating room. We may need to place a lumbar drain, although, I like to see where his conus lies given his history of tethered cord and recent release. In the radicular standpoint, he is doing very well and other than the small amount of CSF drainage from his wound, appears to be in excellent condition. Job ID: [id number]
[2018-07-26] MEDS: HYDROcodone/Acetaminophen 5/325 mg Tablet PO PRN ×2 (17:07→21:07)
--- NOTE | 2018-07-26 18:20 | MRI ---
MRI LUMBAR SPINE WITHOUT CONTRAST: HISTORY: Previous surgery. Possible leak. COMPARISON: None. TECHNIQUE: An MRI of the lumbar spine is performed without intravenous Gadolinium administration. Multisequenti al, multiplanar imaging is performed. FINDINGS: Appropriate T1 marrow signal intensity of the lumbar vertebrae. Lumbar spine vertebral body height i s maintained. There is no fracture. Straightening of normal lumbar lordosis. No significant STIR h yperintensity to suggest vertebral body edema or ligamentous injury. There is a hemangioma at T12 an d at L5. Laminectomy defect is identified at L4 and L5. There is an intrinsic T2 hyperintense lesion involvin g the posterior midline soft tissues, extending into the surgical site and abutting the posterior asp ect of the thecal sac. This collection measures 4.9 cm medial-lateral x 4.2 cm anterior-posterior x 10 cm cranial-caudal. The cephalad-most extent is along the inferior aspect of L3 and the caudal-mos t extent is down to the S1 level. This lesion is contiguous with a fluid collection that is confined to the subcutaneous fat. The fluid collection involving the level of the subcutaneous fat measure 3 .2 cm anterior-posterior x 5.4 cm medial-lateral. The connection is along the inferior aspect, at ap proximately the S1 level. There is resultant severe central canal stenosis and displacement of the c ontents of the thecal sac at L3, L4, L5, and S1. The conus medullaris appears to be low-lying and terminates at the inferior aspect of L2. The patien t may have a past medical history of a tethered cord. Correlate clinically. T12-L1: No high-grade central canal stenosis or high-grade foraminal narrowing. L1-L2: No high-grade central canal stenosis or high-grade foraminal narrowing. L2-L3: No high-grade central canal stenosis or high-grade foraminal narrowing. L3-L4/L4-L5/L5-S1: No high-grade foraminal stenosis. 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 There is res ultant severe central canal stenosis starting at L3 and extending down to the S1 level. The fluid co llection at the level of the postsurgical site does have a component that is contiguous with the subc utaneous fat, as described above. POS: [facility]
[2018-07-26] MEDS: Insulin Glargine 45 UNITS in Pre-Filled Syringe 1 EACH SC SCH (21:08)
[2018-07-27] MEDS: CEFAZOLIN 2 GM/50 ML-DEXTROSE 2 GM in Premix Bag 1 BAG IVPB SCH ×3 (05:01→21:09)
[2018-07-27] MEDS: HYDROcodone/Acetaminophen 5/325 mg Tablet PO PRN ×2 (05:06→21:22)
[2018-07-27] MEDS ORDERED: Sodium Chloride 0.9% 10 ML ONE (06:38)
[2018-07-27] MEDS ORDERED: Bacitracin Zinc Ointment 30 gm TUBE ONE (06:38)
[2018-07-27] MEDS ORDERED: Thrombin 5000 UNITS/5 ML VIAL ONE (06:38)
[2018-07-27] MEDS ORDERED: Fentanyl 100 MCG/2 ML VIAL ONE ×4 (06:43→13:07)
[2018-07-27] MEDS ORDERED: Meperidine HCl/PF 25 MG/ML VIAL SLOW IVP PRN (08:13)
[2018-07-27] MEDS ORDERED: Promethazine HCl 25 MG/ML VIAL IM PRN ×2 (08:13→09:21)
[2018-07-27] MEDS ORDERED: Ondansetron HCl/PF 4 MG/2 ML Vial IVP PRN ×2 (08:13→09:21)
[2018-07-27] MEDS ORDERED: Promethazine HCl 25 MG/ML VIAL SLOW IVP PRN ×2 (08:13→09:21)
--- NOTE | 2018-07-27 09:19 | PRG ---
DATE OF SERVICE: 07/27/2018 SUBJECTIVE: I reviewed the MRI of the lumbar spine on Mr. Crisostomo. Unfortunately, he has a significant pseudomeningocele and dehiscence of his superficial and deep portions of the wound. He had been doing very well until attempting to move a recliner just over 3 weeks out from surgery. Unfortunately, I think this has led to his current issue while he has clinically improved from a CSF hypotension standpoint. He continues to leak small amounts of CSF and the pseudomeningocele is compressive. He has no leg pain or bowel or bladder issues, and his lower extremity strength is intact, and from a neurologic standpoint, it is asymptomatic; however, if we do not try and repair this, obviously, I think he is going to continue to have wound issues. I discussed all of this with he and his family, and I let them know that we need to return to surgery, which we will do today. We discussed reopening of the wound, repair of the dura with possible sewing in of bovine patch with possible lumbar drain placement. We will have to keep him flat overnight and essentially restart his postoperative course again. It does appears if his conus is migrated cephalad consistent with successful untethering of his cord; however at this point, we need to repair his dura, his deep and superficial tissues. I think that the popping that the patient felt at the time of moving the recliner was the sutures tearing. Understanding the goals, indications, risks, alternatives, and complications of the aforementioned surgery, reopening of the wound, repair of the dura with possible patch placement with possible lumbar drain placement, I wish that we proceed with surgery. DIAGNOSIS: CSF leak with pseudomeningocele, following premature exertion after lumbar surgery. Job ID: [id number]
--- NOTE | 2018-07-27 12:29 | OP ---
DATE OF PROCEDURE: 07/27/2018 SENIOR SSIS DEVELOPER: Pilo Gonzales PA-C. PREPROCEDURE DIAGNOSIS: CSF leak with wound dehiscence following physical exertion postoperatively. POSTPROCEDURE DIAGNOSIS: CSF leak with wound dehiscence following physical exertion postoperatively. Modifier 78 should be added to this surgery as this was an unplanned return to the operating room to treat CSF leak and wound dehiscence and there was no evidence of wound infection. PROCEDURES PERFORMED: 1. Repair of sacral CSF leak with history of untethering of cord and lumbar laminectomy. 2. Use of operative microscope for microdissection. 3. Wound exploration and repair. 4. Placement of lumbar drain. DESCRIPTION OF PROCEDURE: After informed consent was obtained from the patient, the patient was brought to the OR. Proper patient, pause, and identification were carried out. He was placed under excellent general endotracheal anesthesia and positioned prone on the OR table. The prior lumbosacral wound was identified and sutures removed. Following sterile cleansing, preparation, and draping, clear fluid was identified, consistent with a pseudomeningocele. There was evidence of a broken suture throughout the superficial and deep regions. We went all the way down to the dura. There was no evidence of infection or purulence specifically and identified a small area at the most caudal region of the dural repair that was where the dura was torn away from the suture. A small amount of CSF was emanating from this region. I then opted to over-sew this with the use of operative microscope for microdissection with more suture and muscle pledget. DuraSeal was used and then identified an area proximal to where our dural opening was and lumbar drain catheter was placed under direct visualization. I irrigated this until air was removed and clear fluid came out of the catheter. Copious irrigation occurred throughout as did maximizing hemostasis. There was no evidence of persistent CSF leak. I was satisfied again. The wound was then closed in anatomic layers following sprinkling of vancomycin powder. The lumbar drain was kept clamped. Job ID: [id number]
[2018-07-27] MEDS ORDERED: HYDROmorphone 2 MG/ML VIAL ONE (14:53)
[2018-07-27] MEDS ORDERED: Ondansetron PF 4 MG/2 ML Vial ONE (15:58)
[2018-07-27] MEDS ORDERED: Lidocaine 1% PF 5 ML VIAL ONE (15:58)
[2018-07-27] MEDS ORDERED: PROPOFOL 200 MG/20 ML VIAL ONE (15:58)
[2018-07-27] MEDS ORDERED: ePHEDrine/0.9% NaCl/PF SYRINGE 50 mg/10 ml ONE (15:58)
[2018-07-27] MEDS ORDERED: Rocuronium Bromide 10 MG/ML (10ML VIAL) ONE (15:58)
[2018-07-27] MEDS ORDERED: PHENYLEPHRINE-NS 100 MCG/ML 10 ML SYRINGE ONE (15:58)
[2018-07-27] MEDS ORDERED: Glycopyrrolate 0.2 MG/ML 5 ML SYRINGE ONE (15:58)
--- NOTE | 2018-07-27 16:13 | PDOC.PN ---
- Subjective Encounter Start Date: 07/27/18 Encounter Start Time: 16:10 Pt seen for management of medical comorbidities, including hypertension. Says he has leg spasms. No other complaints. - Objective Resuscitation Status - Order Detail: 07/23/18 17:05 Resuscitation Status Routine Co-Sign Provider: Resuscitation Status: FULL: Full Resuscitation MAR Reviewed: Yes Vital Signs & Weight: Vital Signs (12 hours) Temp Pulse Resp BP Pulse Ox 07/27/18 07:32 18 07/27/18 04:57 99.1 F 71 18 125/67 97 Weight Weight 220 lb 0.341 oz I&O: 07/26/18 07/27/18 07/28/18 06:59 06:59 06:59 Intake Total 2570 850 Output Total 1150 500 Balance 1420 350 Result Diagrams: 07/23/18 16:36 07/25/18 08:35 Additional Labs: Accuchecks 07/27/18 07/27/18 07/26/18 14:07 05:01 20:47 POC Glucose 118 H 131 H 140 H Labs reviewed by me Phys Exam - Physical Examination Obese HEENT: moist MMs Neck: supple Respiratory: clear to auscultation bilateral Cardiovascular: RRR Gastrointestinal: soft Neurological: moves all 4 limbs Psychiatric: normal affect Dx/Plan (1) HTN (hypertension) Code(s): I10 - ESSENTIAL (PRIMARY) HYPERTENSION Status: Chronic Qualifiers: Hypertension type: essential hypertension Qualified Code(s): I10 - Essential (primary) hypertension Comment: add PRN IV hydralazine for blood pressure spikes (2) Dyslipidemia Code(s): E78.5 - HYPERLIPIDEMIA, UNSPECIFIED Status: Chronic Comment: continue statin (3) DM type 2 (diabetes mellitus, type 2) Status: Chronic Qualifiers: Diabetes mellitus buttermaker insulin use: with buttermaker use Diabetes mellitus complication status: with unspecified complications Qualified Code(s) : E11.8 - Type 2 diabetes mellitus with unspecified complications; Z79.4 - [facility] (current) use of insulin Comment: start accuchecks, insulin sliding scale. Resume long-acting insulin once pt's oral intake improves (4) BPH (benign prostatic hyperplasia) Code(s): N40.0 - BENIGN PROSTATIC HYPERPLASIA WITHOUT LOWER URINRY TRACT SYMP Status: Chronic Comment: continue terazosin - Plan * . s/p CSF leak repair. Pain management and DVT prophylaxis per primary service. Review of Systems - Review of Systems Respiratory: negative: Cough, Shortness of Breath, SOB with Excertion, Pleuritic Pain, Wheezing Cardiovascular: negative: chest pain, palpitations, orthopnea, paroxysmal nocturnal dyspnea, edema, light headedness - Medications/Allergies Allergies/Adverse Reactions: Allergies Allergy/AdvReac Type Severity Reaction Status Date / Time irbesartan Allergy Verified 06/23/18 09:55 lisinopril Allergy cough Verified 06/23/18 09:55 Medications: Current Medications Acetaminophen (Tylenol) 650 mg PO Q4H PRN PRN Reason: Headache/Fever/Mild Pain (1-3) Hydrocodone Bitart/Acetaminophen ([place] 5/325) 1 tab PO Q4H PRN PRN Reason: Moderate Pain (4-6) Last Admin: 07/27/18 05:06 Dose: 1 tab Alprazolam (Xanax) 0.25 mg PO NOW [facility] Stop: 07/27/18 18:15 Bisacodyl (Dulcolax) 10 mg PO DAILYPRN PRN PRN Reason: Constipation Dextrose/Water (Dextrose 50%) 25 gm IVP PRN PRN PRN Reason: HYPOGLYCEMIA PROTOCOL Glucagon (Glucagon) 1 mg IM PRN PRN PRN Reason: HYPOGLYCEMIA PROTOCOL Sodium Chloride (Normal Saline 0.9%) 1,000 mls @ 50 mls/hr IV .Q20H [facility] Last Admin: 07/26/18 10:15 Dose: 1,000 mls Cefazolin Sodium/Dextrose 2 gm (/ Device) 50 mls @ 100 mls/hr IVPB Q8HR [facility] Last Admin: 07/27/18 05:01 Dose: 50 mls Insulin Glargine 40 units/ (Miscellaneous Medication) 0.4 mls @ 0 mls/hr SC QAM [facility] Last Admin: 07/26/18 09:11 Dose: 0.4 mls Insulin Glargine 45 units/ (Miscellaneous Medication) 0.45 mls @ 0 mls/hr SC HS [facility] Last Admin: 07/26/18 21:08 Dose: Not Given Dextrose/Water (D5w) 1,000 mls @ 0 mls/hr IV INF PRN PRN Reason: HYPOGLYCEMIA PROTOCOL Insulin Human Lispro (Humalog) 8 units SC TID[facility] Last Admin: 07/26/18 17:05 Dose: Not Given Insulin Human Regular (Humulin R) 0 units SC .MODERATE SLIDING SC PRN; Protocol PRN Reason: MODERATE SLIDING SCALE Last Admin: 07/23/18 22:15 Dose: 6 unit Metformin HCl (Glucophage) 1,000 mg PO BID-[facility] Last Admin: 07/26/18 17:02 Dose: 1,000 mg Ondansetron HCl (Zofran) 4 mg IVP Q6H PRN PRN Reason: Nausea/Vomiting Last Admin: 07/24/18 08:05 Dose: 4 mg Senna/Docusate Sodium (Senokot S) 2 tab PO BID PRN PRN Reason: Constipation Sodium Chloride (Flush - Normal Saline) 10 ml IVF PRN PRN PRN Reason: Saline Flush Tramadol HCl (Ultram) 50 mg PO Q6H PRN PRN Reason: Mild Pain (1-3) Last Admin: 07/24/18 23:24 Dose: 50 mg
[2018-07-27] MEDS ORDERED: ALPRAZolam 0.25 MG TAB PO SCH (16:15)
[2018-07-27] MEDS ORDERED: Lorazepam 2 MG/ML VIAL SLOW IVP PRN (16:42)
[2018-07-27] MEDS ORDERED: Promethazine HCl 25 MG/ML VIAL ONE (16:47)
[2018-07-27] MEDS ORDERED: hydrALAZINE 20 MG/ML VIAL SLOW IVP PRN (18:45)
[2018-07-27] MEDS: HumaLOG 300 UNITS/3 ML VIAL SC SCH (19:49)
[2018-07-27] MEDS: Insulin Glargine 40 UNITS in Pre-Filled Syringe 1 EACH SC SCH (19:50)
[2018-07-27] MEDS: metFORMIN 500 MG TAB PO SCH (19:50)
[2018-07-27] MEDS: Atorvastatin Calcium 10 MG TAB PO SCH (21:07)
[2018-07-27] MEDS: Terazosin HCl 5 MG CAP PO SCH (21:08)
[2018-07-27] MEDS: Insulin Glargine 45 UNITS in Pre-Filled Syringe 1 EACH SC SCH (21:08)
[2018-07-27] MEDS: Sodium Chloride 0.9% 1,000 ML IV SCH (21:20)
[2018-07-28] MEDS: CEFAZOLIN 2 GM/50 ML-DEXTROSE 2 GM in Premix Bag 1 BAG IVPB SCH ×3 (05:53→21:08)
[2018-07-28] MEDS: Insulin Regular 300 UNITS/3 ML VIAL SC PRN (06:30)
[2018-07-28] MEDS: Losartan 25 MG TAB PO SCH (08:27)
[2018-07-28] MEDS: HYDROcodone/Acetaminophen 5/325 mg Tablet PO PRN (08:29)
--- NOTE | 2018-07-28 08:46 | CT ---
PRELIMINARY REPORT/[facility]/EMERGENTY AFTER-HOURS PROCEDURE CT Head Without Contrast EXAM DATE/TIME: 07/28/2018 3:35 AM CLINICAL HISTORY: 73 years old, male; Screening exam; Prior surgery; Surgery type: Csf leak repair; Patient HX: S/P csf leak repair TECHNIQUE: Axial computed tomography images of the head/brain without contrast. COMPARISON: CT Brain WO Con 07/24/2018 8:14 AM FINDINGS: Brain: No acute intracranial hemorrhage or mass effect. No definite acute infarct by CT. Ventricles: Ventricle size is normal for age. Bones/joints: No definite acute skull fracture. Sinuses: Included paranasal sinuses are essentially clear. Mastoid air cells: No significant acute finding. IMPRESSION: 1. No acute intracranial bleed or mass effect. 2. No significant interval change. Thank you for allowing us to participate in the care of your patient. Dictated and Authenticated by: Desmond Gonzalez MD 07/28/2018 3:54 AM Central Time ([place] & [place]) FINAL REPORT CT HEAD NONCONTRAST Date: 07-28-18 Performed on emergency basis at 0336 hours. History: CFF leak. Recent surgical repair. Follow up. Comparison: 07-24-18 FINDINGS: I agree with the preliminary report by Dr. Clayton from [facility]. No acute intracranial abnor malities are demonstrated on noncontrast CT head. Code QA POS: [facility]
[2018-07-28] MEDS: Ondansetron PF 4 MG/2 ML Vial IVP PRN (09:01)
[2018-07-28] MEDS: HumaLOG 300 UNITS/3 ML VIAL SC SCH ×3 (09:06→16:31)
[2018-07-28] MEDS: metFORMIN 500 MG TAB PO SCH ×2 (09:06→16:32)
[2018-07-28] MEDS: Insulin Glargine 40 UNITS in Pre-Filled Syringe 1 EACH SC SCH (09:06)
--- NOTE | 2018-07-28 09:59 | PRG ---
DATE OF SERVICE: 07/28/2018 SUBJECTIVE: Mr. Crisostomo is postoperative day #1 from exploration of lumbar sacral wound and placement of lumbar drain. He has headache when the lumbar drain is open and I will reduce his drainage from 10 mL every 2 hours to 5 mL every [address] this morning is satisfactory with no evidence of pneumocephalus or intracranial blood products. He has had some delirium and agitation, but appears to be moving everything to command and appropriate this morning with perhaps mild delirium. I will begin to sit him up to head of bed at 30 degrees and if tolerated, activity as tolerated. Tomorrow, we will clamp his lumbar drain and if doing satisfactorily, we will plan for removal Thursday with possible dismiss over the weekend; however, obviously, this all depends on how the patient is doing. Job ID: [id number]
[2018-07-28] MEDS: Sodium Chloride 0.9% 1,000 ML IV SCH (15:51)
--- NOTE | 2018-07-28 16:03 | PDOC.PN ---
- Subjective Encounter Start Date: 07/28/18 Encounter Start Time: 10:00 Pt seen for followup re: hypertension. Denies chest pain or shortness of breath. - Objective Resuscitation Status - Order Detail: 07/23/18 17:05 Resuscitation Status Routine Co-Sign Provider: Resuscitation Status: FULL: Full Resuscitation MAR Reviewed: Yes Vital Signs & Weight: Vital Signs (12 hours) Temp Pulse Ox 07/28/18 12:00 99.2 F 07/28/18 08:00 98.9 F 97 07/28/18 04:00 100.2 F H Weight Weight 220 lb 0.341 oz Most Recent Monitor Data Heart Rate from ECG 96 NIBP 125/64 NIBP BP-Mean 84 Respiration from ECG 28 SpO2 94 I&O: 07/27/18 07/28/18 07/29/18 06:59 06:59 06:59 Intake Total 850 827 150 Output Total 500 870 166 Balance 350 -43 -16 Result Diagrams: 07/23/18 16:36 07/25/18 08:35 Additional Labs: Accuchecks 07/28/18 07/28/18 07/27/18 11:02 06:25 21:15 POC Glucose 211 H 240 H 227 H EKG Reviewed by me: Yes (Tele: NSR) Phys Exam - Physical Examination Obese HEENT: moist MMs Neck: supple Respiratory: clear to auscultation bilateral Cardiovascular: RRR Gastrointestinal: soft Neurological: moves all 4 limbs Psychiatric: normal affect Dx/Plan (1) HTN (hypertension) Code(s): I10 - ESSENTIAL (PRIMARY) HYPERTENSION Status: Chronic Qualifiers: Hypertension type: essential hypertension Qualified Code(s): I10 - Essential (primary) hypertension Comment: controlled (2) Dyslipidemia Code(s): E78.5 - HYPERLIPIDEMIA, UNSPECIFIED Status: Chronic Comment: on statin (3) DM type 2 (diabetes mellitus, type 2) Status: Chronic Qualifiers: Diabetes mellitus intermediate project manager insulin use: with senior care use Diabetes mellitus complication status: with unspecified complications Qualified Code(s) : E11.8 - Type 2 diabetes mellitus with unspecified complications; Z79.4 - terminal make up operator (current) use of insulin Comment: continue accuchecks, insulin sliding scale. (4) BPH (benign prostatic hyperplasia) Code(s): N40.0 - BENIGN PROSTATIC HYPERPLASIA WITHOUT LOWER URINRY TRACT SYMP Status: Chronic Comment: stable - Plan * . Review of Systems - Review of Systems Respiratory: negative: Cough, Shortness of Breath, SOB with Excertion, Pleuritic Pain, Wheezing Cardiovascular: negative: chest pain, palpitations, orthopnea, paroxysmal nocturnal dyspnea, edema, light headedness - Medications/Allergies Allergies/Adverse Reactions: Allergies Allergy/AdvReac Type Severity Reaction Status Date / Time irbesartan Allergy Verified 06/23/18 09:55 lisinopril Allergy cough Verified 06/23/18 09:55 Medications: Current Medications Acetaminophen (Tylenol) 650 mg PO Q4H PRN PRN Reason: Headache/Fever/Mild Pain (1-3) Hydrocodone Bitart/Acetaminophen ([place] 5/325) 1 tab PO Q4H PRN PRN Reason: Moderate Pain (4-6) Last Admin: 07/28/18 08:29 Dose: 1 tab Atorvastatin Calcium (Lipitor) 10 mg PO [facility] Last Admin: 07/27/18 21:07 Dose: 10 mg Bisacodyl (Dulcolax) 10 mg PO DAILYPRN PRN PRN Reason: Constipation Dextrose/Water (Dextrose 50%) 25 gm IVP PRN PRN PRN Reason: HYPOGLYCEMIA PROTOCOL Glucagon (Glucagon) 1 mg IM PRN PRN PRN Reason: HYPOGLYCEMIA PROTOCOL Hydralazine HCl (Apresoline) 10 mg SLOW IVP Q6H PRN PRN Reason: SBP Greater Than 170 Sodium Chloride (Normal Saline 0.9%) 1,000 mls @ 50 mls/hr IV .Q20H [facility] Last Admin: 07/28/18 15:51 Dose: 1,000 mls Cefazolin Sodium/Dextrose 2 gm (/ Device) 50 mls @ 100 mls/hr IVPB Q8HR [facility] Last Admin: 07/28/18 13:34 Dose: 50 mls Insulin Glargine 40 units/ (Miscellaneous Medication) 0.4 mls @ 0 mls/[facility] [place] Last Admin: 07/28/18 09:06 Dose: Not Given Insulin Glargine 45 units/ (Miscellaneous Medication) 0.45 mls @ 0 mls/hr SC [facility] Last Admin: 07/27/18 21:08 Dose: 0.45 mls Dextrose/Water (D5w) 1,000 mls @ 0 mls/hr IV INF PRN PRN Reason: HYPOGLYCEMIA PROTOCOL Insulin Human Lispro (Humalog) 8 units SC TID-[facility] Last Admin: 07/28/18 11:29 Dose: 8 unit Insulin Human Regular (Humulin R) 0 units SC .MODERATE SLIDING SC PRN; Protocol PRN Reason: MODERATE SLIDING SCALE Last Admin: 07/28/18 06:30 Dose: 4 unit Lorazepam (Ativan) 0.5 mg SLOW IVP Q6H PRN PRN Reason: Anxiety/Agitation Losartan Potassium (Cozaar) [facility] [place] Last Admin: 07/28/18 08:27 Dose: 25 mg Metformin HCl (Glucophage) 1,000 mg PO BID-[facility] Last Admin: 07/28/18 09:06 Dose: Not Given Ondansetron HCl (Zofran) 4 mg IVP Q6H PRN PRN Reason: Nausea/Vomiting Last Admin: 07/28/18 09:01 Dose: 4 mg Pantoprazole Sodium (Protonix) 40 mg PO DAILY [facility] Last Admin: 07/28/18 08:27 Dose: 40 mg Senna/Docusate Sodium (Senokot S) 2 tab PO BID PRN PRN Reason: Constipation Sodium Chloride (Flush - Normal Saline) 10 ml IVF PRN PRN PRN Reason: Saline Flush Terazosin HCl (Hytrin) 10 mg PO [facility] Last Admin: 07/27/18 21:08 Dose: 10 mg Tramadol HCl (Ultram) 50 mg PO Q6H PRN PRN Reason: Mild Pain (1-3) Last Admin: 07/24/18 23:24 Dose: 50 mg
[2018-07-28] MEDS: Terazosin HCl 5 MG CAP PO SCH (21:09)
[2018-07-28] MEDS: Atorvastatin Calcium 10 MG TAB PO SCH (21:09)
[2018-07-28] MEDS: Insulin Glargine 45 UNITS in Pre-Filled Syringe 1 EACH SC SCH (21:12)
[2018-07-28] MEDS: Acetaminophen 325 MG TAB PO PRN (23:34)
[2018-07-29] MEDS: CEFAZOLIN 2 GM/50 ML-DEXTROSE 2 GM in Premix Bag 1 BAG IVPB SCH (06:04)
[2018-07-29] MEDS: HYDROcodone/Acetaminophen 5/325 mg Tablet PO PRN ×2 (07:16→15:09)
[2018-07-29] MEDS: metFORMIN 500 MG TAB PO SCH ×2 (08:32→16:00)
[2018-07-29] MEDS: HumaLOG 300 UNITS/3 ML VIAL SC SCH ×3 (08:41→16:00)
[2018-07-29] MEDS: Losartan 25 MG TAB PO SCH (08:47)
[2018-07-29] MEDS: Insulin Glargine 40 UNITS in Pre-Filled Syringe 1 EACH SC SCH (08:47)
[2018-07-29 11:17] LABS: #Lymphocytes 1.6 thou/uL (1.20-3.40); #Monocytes 0.8 thou/uL (0.11-0.59); #Neutrophils 6.1 thou/uL (1.40-6.50); %Basophils 0.1 % (0.0-1.0); %Eosinophils 0.2 % (0.0-10.0); %Monocytes 9.1 % (0.0-10.0); %Neutrophils 71.6 % (42.0-75.0); Hemoglobin 11.5 g/dL (14.0-18.0); Mean Corpuscular HGB CONC 32.5 g/dL (32.0-36.0); Mean Corpuscular Hemoglobin 30.1 pg (27.0-31.0); Mean Corpuscular Volume 92.8 fL (78.0-98.0); Mean Platelet Volume 8.3 fL (7.4-10.4); Platelet Count 111 thou/uL (130-400); RBC Distribution Width 12.8 % (11.5-14.5); Red Blood Cell (RBC) Count 3.81 mill/uL (4.70-6.10); White Blood Cell (WBC) Count 8.5 thou/uL (4.8-10.8)
[2018-07-29 11:39] LABS: Anion Gap 11 mmol/L (10-20); BUN (Urea Nitrogen) 11 mg/dL (8.4-25.7); Calc. Creatinine Clearance 121 mL/min (70-130); Carbon Dioxide 24 mmol/L (23-31); Chloride 102 mmol/L (98-107); Estimated GFR-MDRD Greater than 90; Glucose 255 mg/dL (83-110); Potassium 3.6 mmol/L (3.5-5.1); Sodium 133 mmol/L (136-145)
--- NOTE | 2018-07-29 12:08 | PRG ---
DATE OF SERVICE: 07/29/2018 SUBJECTIVE: Mr. Crisostomo is postoperative day #2 from wound exploration and CSF leak repair with placement of lumbar drain. His lumbar drain has been clamped. He has had some issues with headache when he sits up and said he has been kept flat overnight and this morning, he is up with the head of bed at 30 degrees and states his headache is improved, although is still present. He appears to be in good spirits. He is talking with family. Neurologically intact. His wound is dry. We will remove his lumbar drain and plan to mobilize him as he is tolerating that. The hope is for transfer to the floor later today. I should note that his sodium is 133. His blood sugar is high at 255, which is likely postprandial. Job ID: [id number]
[2018-07-29] MEDS: Insulin Regular 300 UNITS/3 ML VIAL SC PRN (12:47)
[2018-07-29] MEDS: Acetaminophen 325 MG TAB PO PRN (12:56)
[2018-07-29] MEDS: Sodium Chloride 0.9% 1,000 ML IV SCH ×2 (13:16→15:53)
--- NOTE | 2018-07-29 13:44 | RAD ---
AP CHEST: History: Fever. Date: 07-29-18 Comparison: 07-02-18 FINDINGS: AP chest demonstrates cardiomegaly. Pulmonary vascular congestion is seen. No evidence of effusions, pneumonia, or pneumothorax seen. IMPRESSION: Cardiomegaly and pulmonary vascular congestion, otherwise unremarkable AP view chest. POS: [facility]
[2018-07-29] MEDS ORDERED: Vancomycin HCl 1 GM in Premix Bag 1 BAG IVPB SCH (14:30)
[2018-07-29] MEDS: Piperacillin/Tazobactam 4.5 GM in Sodium Chloride 0.9% 100 ML IVPB SCH (15:59)
--- NOTE | 2018-07-29 19:29 | PDOC.PN ---
- Subjective Encounter Start Date: 07/29/18 Encounter Start Time: 15:00 Pt seen for followup re: fevers. Denies cough. Denies chest pain or shortness of breath. - Objective Resuscitation Status - Order Detail: 07/23/18 17:05 Resuscitation Status Routine Co-Sign Provider: Resuscitation Status: FULL: Full Resuscitation MAR Reviewed: Yes Vital Signs & Weight: Vital Signs (12 hours) Temp Pulse Resp BP Pulse Ox 07/29/18 14:55 98.5 F 85 20 124/66 95 07/29/18 14:00 99.9 F H 07/29/18 12:00 101.3 F H 07/29/18 08:00 99.9 F H 97 Weight Weight 220 lb 0.341 oz Most Recent Monitor Data Heart Rate from ECG 103 NIBP 144/64 NIBP BP-Mean 90 Respiration from ECG 29 SpO2 100 I&O: 07/28/18 07/29/18 07/30/18 06:59 06:59 06:59 Intake Total 827 1585 558 Output Total 870 1436 950 Balance -43 149 -392 Result Diagrams: 07/29/18 10:59 07/29/18 10:59 Additional Labs: Accuchecks 07/29/18 07/29/18 07/29/18 15:40 12:41 06:34 POC Glucose 200 H 217 H 136 H 07/28/18 07/27/18 21:12 09:02 POC Glucose 165 H 157 H Phys Exam - Physical Examination Constitutional: NAD HEENT: moist MMs Neck: supple Respiratory: clear to auscultation bilateral Cardiovascular: RRR Gastrointestinal: soft Neurological: moves all 4 limbs Psychiatric: normal affect Dx/Plan (1) Fever Code(s): R50.9 - FEVER, UNSPECIFIED Status: Acute Comment: workup to r/o infection, start empiric antibiotics (Zosyn and vancomycin). (2) HTN (hypertension) Code(s): I10 - ESSENTIAL (PRIMARY) HYPERTENSION Status: Chronic Qualifiers: Hypertension type: essential hypertension Qualified Code(s): I10 - Essential (primary) hypertension Comment: controlled (3) Dyslipidemia Code(s): E78.5 - HYPERLIPIDEMIA, UNSPECIFIED Status: Chronic Comment: continue statin (4) DM type 2 (diabetes mellitus, type 2) Status: Chronic Qualifiers: Diabetes mellitus watermelon inspector insulin use: with watermelon inspector use Diabetes mellitus complication status: with unspecified complications Qualified Code(s) : E11.8 - Type 2 diabetes mellitus with unspecified complications; Z79.4 - manager long term care (current) use of insulin Comment: continue long-acting insulin, continue accuchecks and insulin sliding scale. (5) BPH (benign prostatic hyperplasia) Code(s): N40.0 - BENIGN PROSTATIC HYPERPLASIA WITHOUT LOWER URINRY TRACT SYMP Status: Chronic Comment: stable - Plan * . Review of Systems - Review of Systems Constitutional: fever Respiratory: negative: Cough, Shortness of Breath, SOB with Excertion, Pleuritic Pain, Wheezing Gastrointestinal: negative: Nausea, Vomiting, Abdominal Pain, Diarrhea, Constipation, Melena, Hematochezia Genitourinary: negative: Dysuria, Frequency, Incontinence, Hematuria, Retention - Medications/Allergies Allergies/Adverse Reactions: Allergies Allergy/AdvReac Type Severity Reaction Status Date / Time irbesartan Allergy Verified 06/23/18 09:55 lisinopril Allergy cough Verified 06/23/18 09:55 Medications: Current Medications Acetaminophen (Tylenol) 650 mg PO Q4H PRN PRN Reason: Headache/Fever/Mild Pain (1-3) Last Admin: 07/29/18 12:56 Dose: 650 mg Hydrocodone Bitart/Acetaminophen ([place] 5/325) 1 tab PO Q4H PRN PRN Reason: Moderate Pain (4-6) Last Admin: 07/29/18 15:09 Dose: 1 tab Atorvastatin Calcium (Lipitor) [address] [facility] Last Admin: 07/28/18 21:09 Dose: 10 mg Bisacodyl (Dulcolax) 10 mg PO DAILYPRN PRN PRN Reason: Constipation Dextrose/Water (Dextrose 50%) 25 gm IVP PRN PRN PRN Reason: HYPOGLYCEMIA PROTOCOL Glucagon (Glucagon) 1 mg IM PRN PRN PRN Reason: HYPOGLYCEMIA PROTOCOL Hydralazine HCl (Apresoline) 10 mg SLOW IVP Q6H PRN PRN Reason: SBP Greater Than 170 Insulin Glargine 40 units/ (Miscellaneous Medication) 0.4 mls @ 0 mls/hr SC [facility] Last Admin: 07/29/18 08:47 Dose: 0.4 mls Insulin Glargine 45 units/ (Miscellaneous Medication) 0.45 mls @ 0 mls/hr SC HS [facility] Last Admin: 07/28/18 21:12 Dose: 0.45 mls Dextrose/Water (D5w) 1,000 mls @ 0 mls/hr IV INF PRN PRN Reason: HYPOGLYCEMIA PROTOCOL Piperacillin Sod/Tazobactam (Sod 4.5 gm/ Sodium Chloride) 100 mls @ 200 mls/hr IVPB 0800,1600,2359 [facility] Last Admin: 07/29/18 15:59 Dose: 100 mls Sodium Chloride (Normal Saline 0.9%) 1,000 mls @ 80 mls/hr IV .[id number] [facility] Last Admin: 07/29/18 15:53 Dose: Not Given Vancomycin HCl 2 gm/ Sodium (Chloride) 500 mls @ 250 mls/hr IVPB 1700 [facility] Stop: 07/29/18 20:00 Last Admin: 07/29/18 17:05 Dose: 500 mls Vancomycin HCl 1.5 gm/ Sodium (Chloride) 300 mls @ 200 mls/hr IVPB 0500,1700 [facility] Insulin Human Lispro (Humalog) 8 units SC TID-[facility] Last Admin: 07/29/18 16:00 Dose: 8 unit Insulin Human Regular (Humulin R) 0 units SC .MODERATE SLIDING SC PRN; Protocol PRN Reason: MODERATE SLIDING SCALE Last Admin: 07/29/18 12:47 Dose: 4 unit Lorazepam (Ativan) 0.5 mg SLOW IVP Q6H PRN PRN Reason: Anxiety/Agitation Losartan Potassium (Cozaar) [facility] Last Admin: 07/29/18 08:47 Dose: 25 mg Metformin HCl (Glucophage) 1,000 mg PO BID-[facility] Last Admin: 07/29/18 16:00 Dose: 1,000 mg Miscellaneous Medication (Pharmacy To Dose) 1 each IVPB PRN PRN PRN Reason: Pharmacy to dose Ondansetron HCl (Zofran) 4 mg IVP Q6H PRN PRN Reason: Nausea/Vomiting Last Admin: 07/28/18 09:01 Dose: 4 mg Pantoprazole Sodium (Protonix) 40 mg PO DAILY [facility] Last Admin: 07/29/18 08:47 Dose: 40 mg Senna/Docusate Sodium (Senokot S) 2 tab PO BID PRN PRN Reason: Constipation Sodium Chloride (Flush - Normal Saline) 10 ml IVF PRN PRN PRN Reason: Saline Flush Terazosin HCl (Hytrin) 10 mg PO HS [facility] Last Admin: 07/28/18 21:09 Dose: 10 mg Tramadol HCl (Ultram) 50 mg PO Q6H PRN PRN Reason: Mild Pain (1-3) Last Admin: 07/24/18 23:24 Dose: 50 mg
[2018-07-29] MEDS: Insulin Glargine 45 UNITS in Pre-Filled Syringe 1 EACH SC SCH (20:52)
[2018-07-29] MEDS: Atorvastatin Calcium 10 MG TAB PO SCH (20:52)
[2018-07-29] MEDS: Terazosin HCl 5 MG CAP PO SCH (20:52)
[2018-07-30] MEDS: Acetaminophen 325 MG TAB PO PRN (00:32)
[2018-07-30] MEDS: Piperacillin/Tazobactam 4.5 GM in Sodium Chloride 0.9% 100 ML IVPB SCH ×3 (00:34→16:54)
[2018-07-30 01:18] LABS: #Lymphocytes 1.7 thou/uL (1.20-3.40); #Monocytes 0.9 thou/uL (0.11-0.59); #Neutrophils 5.7 thou/uL (1.40-6.50); %Basophils 0.2 % (0.0-1.0); %Eosinophils 0.2 % (0.0-10.0); %Lymphocytes 20.5 % (21.0-51.0); %Monocytes 10.8 % (0.0-10.0); %Neutrophils 68.2 % (42.0-75.0); Mean Corpuscular HGB CONC 31.4 g/dL (32.0-36.0); Mean Corpuscular Volume 92.5 fL (78.0-98.0); Mean Platelet Volume 8.3 fL (7.4-10.4); Platelet Count 123 thou/uL (130-400); RBC Distribution Width 12.7 % (11.5-14.5); Red Blood Cell (RBC) Count 3.79 mill/uL (4.70-6.10); White Blood Cell (WBC) Count 8.4 thou/uL (4.8-10.8)
[2018-07-30 01:44] LABS: ALT (SGPT) 25 U/L (8-55); AST (SGOT) 18 U/L (5-34); Alkaline Phosphatase 98 U/L (40-150); Anion Gap 13 mmol/L (10-20); BUN (Urea Nitrogen) 13 mg/dL (8.4-25.7); Bilirubin, Total 0.6 mg/dL (0.2-1.2); CRP (Inflammatory) 12.98 mg/dL (= or < 0.5); Calc. Creatinine Clearance 137 mL/min (70-130); Calcium 7.9 mg/dL (7.8-10.44); Carbon Dioxide 21 mmol/L (23-31); Chloride 103 mmol/L (98-107); Estimated GFR-MDRD Greater than 90; Globulin 2.8 g/dL (2.4-3.5); Glucose 109 mg/dL (83-110); Magnesium 1.6 mg/dL (1.6-2.6); Potassium 3.4 mmol/L (3.5-5.1); Protein, Total 5.8 g/dL (5.8-8.1); Sodium 134 mmol/L (136-145)
[2018-07-30] MEDS: Vancomycin HCl 1.5 GM in Sodium Chloride 0.9% 250 ML 300 ML IVPB SCH ×2 (04:51→17:43)
[2018-07-30] MEDS: Sodium Chloride 0.9% 1,000 ML IV SCH ×2 (04:51→17:43)
[2018-07-30] MEDS: HumaLOG 300 UNITS/3 ML VIAL SC SCH ×3 (08:03→18:01)
[2018-07-30] MEDS: metFORMIN 500 MG TAB PO SCH ×2 (08:04→17:42)
[2018-07-30] MEDS: Insulin Glargine 40 UNITS in Pre-Filled Syringe 1 EACH SC SCH (08:04)
[2018-07-30] MEDS: HYDROcodone/Acetaminophen 5/325 mg Tablet PO PRN ×3 (08:12→17:42)
[2018-07-30] MEDS: Losartan 25 MG TAB PO SCH (09:00)
--- NOTE | 2018-07-30 12:36 | PRG ---
DATE OF SERVICE: 07/30/2018 SUBJECTIVE: Mr. Crisostomo is tolerating floor care. He is now 3 days out from lumbar wound revision and repair following dehiscence after moving a recliner just over 3 weeks out from surgery. We also had to repair CSF leak that occurred after removing the recliner. He has had periods of delirium, but otherwise essentially a nonfocal exam. He has had headaches that at times has been better and at times has been worse, although he is not yet essentially mobilized. We need to mobilize him. His wound is dry. His lumbar drain has been removed. We will begin to prepare for potential inpatient rehab. We have sent cultures as there was a period where he was febrile yesterday, but I strongly suspect this is related to atelectasis. His hemoglobin is at 11. His white blood cell count is normal and his cultures, however, are negative. At this point, we are awaiting his urine culture and that we will need to watch this as he did have a significant urinary tract infection postoperatively after his last surgery. Job ID: [id number]
--- NOTE | 2018-07-30 14:20 | PDOC.PN ---
- Subjective Encounter Start Date: 07/30/18 Encounter Start Time: 09:00 Pt seen for followup re: fever. Had fever overnight. No other complaints. - Objective Resuscitation Status - Order Detail: 07/23/18 17:05 Resuscitation Status Routine Co-Sign Provider: Resuscitation Status: FULL: Full Resuscitation Vital Signs & Weight: Vital Signs (12 hours) Temp Pulse Resp BP Pulse Ox 07/30/18 12:00 99.0 F 81 24 H 150/66 H 95 07/30/18 08:00 98.6 F 100 30 H 155/79 H 95 07/30/18 04:00 99 F 80 20 131/66 95 Weight Weight 220 lb 0.341 oz Most Recent Monitor Data Heart Rate from ECG 103 NIBP 144/64 NIBP BP-Mean 90 Respiration from ECG 29 SpO2 100 I&O: 07/29/18 07/30/18 07/31/18 06:59 06:59 06:59 Intake Total 1585 3048 Output Total 1436 1700 Balance 149 1348 Result Diagrams: 07/30/18 01:11 07/30/18 01:11 Additional Labs: Accuchecks 07/30/18 07/30/18 07/29/18 10:55 06:26 20:52 POC Glucose 173 H 107 114 H 07/29/18 15:40 POC Glucose 200 H Phys Exam - Physical Examination Obese HEENT: moist MMs Neck: supple Respiratory: clear to auscultation bilateral Cardiovascular: RRR Gastrointestinal: soft Neurological: moves all 4 limbs Psychiatric: normal affect Dx/Plan (1) Fever Code(s): R50.9 - FEVER, UNSPECIFIED Status: Acute Comment: On Zosyn and vancomycin. Cultures negative so far. (2) HTN (hypertension) Code(s): I10 - ESSENTIAL (PRIMARY) HYPERTENSION Status: Chronic Qualifiers: Hypertension type: essential hypertension Qualified Code(s): I10 - Essential (primary) hypertension Comment: controlled (3) Dyslipidemia Code(s): E78.5 - HYPERLIPIDEMIA, UNSPECIFIED Status: Chronic Comment: on statin (4) DM type 2 (diabetes mellitus, type 2) Status: Chronic Qualifiers: Diabetes mellitus termite control service representative insulin use: with termite control service representative use Diabetes mellitus complication status: with unspecified complications Qualified Code(s) : E11.8 - Type 2 diabetes mellitus with unspecified complications; Z79.4 - [facility] (current) use of insulin Comment: on accuchecks and insulin sliding scale. (5) BPH (benign prostatic hyperplasia) Code(s): N40.0 - BENIGN PROSTATIC HYPERPLASIA WITHOUT LOWER URINRY TRACT SYMP Status: Chronic Comment: stable - Plan * . Review of Systems - Review of Systems Constitutional: fever. negative: chills, sweats, weakness, malaise Respiratory: negative: Cough, Shortness of Breath, SOB with Excertion, Pleuritic Pain, Wheezing Cardiovascular: negative: chest pain, palpitations, orthopnea, paroxysmal nocturnal dyspnea, edema, light headedness - Medications/Allergies Allergies/Adverse Reactions: Allergies Allergy/AdvReac Type Severity Reaction Status Date / Time irbesartan Allergy Verified 06/23/18 09:55 lisinopril Allergy cough Verified 06/23/18 09:55 Medications: Current Medications Acetaminophen (Tylenol) 650 mg PO Q4H PRN PRN Reason: Headache/Fever/Mild Pain (1-3) Last Admin: 07/30/18 00:32 Dose: 650 mg Hydrocodone Bitart/Acetaminophen ([place] 5/325) 1 tab PO Q4H PRN PRN Reason: Moderate Pain (4-6) Last Admin: 07/30/18 13:49 Dose: 1 tab Atorvastatin Calcium (Lipitor) 10 mg PO [facility] Last Admin: 07/29/18 20:52 Dose: 10 mg Bisacodyl (Dulcolax) 10 mg PO DAILYPRN PRN PRN Reason: Constipation Dextrose/Water (Dextrose 50%) 25 gm IVP PRN PRN PRN Reason: HYPOGLYCEMIA PROTOCOL Enoxaparin Sodium (Lovenox) 40 mg SC 2100 [facility] Glucagon (Glucagon) 1 mg IM PRN PRN PRN Reason: HYPOGLYCEMIA PROTOCOL Hydralazine HCl (Apresoline) 10 mg SLOW IVP Q6H PRN PRN Reason: SBP Greater Than 170 Insulin Glargine 40 units/ (Miscellaneous Medication) 0.4 mls @ 0 mls/hr [facility] Last Admin: 07/30/18 08:04 Dose: 0.4 mls Insulin Glargine 45 units/ (Miscellaneous Medication) 0.45 mls @ 0 mls/hr SC [facility] Last Admin: 07/29/18 20:52 Dose: Not Given Dextrose/Water (D5w) 1,000 mls @ 0 mls/hr IV INF PRN PRN Reason: HYPOGLYCEMIA PROTOCOL Piperacillin Sod/Tazobactam (Sod 4.5 gm/ Sodium Chloride) 100 mls @ 200 mls/hr IVPB 0800,1600,2359 [facility] Last Admin: 07/30/18 09:00 Dose: 100 mls Sodium Chloride (Normal Saline 0.9%) 1,000 mls @ 80 mls/hr IV .[id number] [facility] Last Admin: 07/30/18 04:51 Dose: 1,000 mls Vancomycin HCl 1.5 gm/ Sodium (Chloride) 300 mls @ 200 mls/hr IVPB 0500,1700 [facility] Last Admin: 07/30/18 04:51 Dose: 300 mls Insulin Human Lispro (Humalog) 8 units SC [facility] Last Admin: 07/30/18 13:43 Dose: 8 unit Insulin Human Regular (Humulin R) 0 units SC .MODERATE SLIDING SC PRN; Protocol PRN Reason: MODERATE SLIDING SCALE Last Admin: 07/29/18 12:47 Dose: 4 unit Lorazepam (Ativan) 0.5 mg SLOW IVP Q6H PRN PRN Reason: Anxiety/Agitation Losartan Potassium (Cozaar) 25 mg [facility] Last Admin: 07/30/18 09:00 Dose: 25 mg Metformin [facility] ([facility]) [facility] Last Admin: 07/30/18 08:04 Dose: 1,000 mg Miscellaneous Medication (Pharmacy To Dose) 1 each IVPB PRN PRN PRN Reason: Pharmacy to dose Ondansetron HCl (Zofran) 4 mg IVP Q6H PRN PRN Reason: Nausea/Vomiting Last Admin: 07/28/18 09:01 Dose: 4 mg Pantoprazole Sodium (Protonix) 40 mg PO DAILY [facility] Last Admin: 07/30/18 08:23 Dose: 40 mg Senna/Docusate Sodium (Senokot S) 2 tab PO BID PRN PRN Reason: Constipation Sodium Chloride (Flush - Normal Saline) 10 ml IVF PRN PRN PRN Reason: Saline Flush Terazosin HCl (Hytrin) 10 mg PO [facility] Last Admin: 07/29/18 20:52 Dose: 10 mg Tramadol HCl (Ultram) 50 mg PO Q6H PRN PRN Reason: Mild Pain (1-3) Last Admin: 07/24/18 23:24 Dose: 50 mg
[2018-07-30] MEDS: Insulin Glargine 45 UNITS in Pre-Filled Syringe 1 EACH SC SCH (21:30)
[2018-07-30] MEDS: Terazosin HCl 5 MG CAP PO SCH (21:30)
[2018-07-30] MEDS: Enoxaparin Sodium 40 MG/0.4 ML SYRINGE SC SCH (21:30)
[2018-07-30] MEDS: Atorvastatin Calcium 10 MG TAB PO SCH (21:30)
[2018-07-31] MEDS: Piperacillin/Tazobactam 4.5 GM in Sodium Chloride 0.9% 100 ML IVPB SCH ×3 (00:57→17:24)
[2018-07-31 06:05] LABS: Vancomycin, Trough 12.8 ug/mL
[2018-07-31] MEDS: Vancomycin HCl 1.5 GM in Sodium Chloride 0.9% 250 ML 300 ML IVPB SCH (06:27)
[2018-07-31] MEDS: Vancomycin HCl 1.75 GM in Sodium Chloride 0.9% 500 ML IVPB SCH ×2 (06:27→18:36)
[2018-07-31] MEDS: HumaLOG 300 UNITS/3 ML VIAL SC SCH ×3 (08:52→17:25)
[2018-07-31] MEDS: Insulin Glargine 40 UNITS in Pre-Filled Syringe 1 EACH SC SCH ×2 (08:52→09:11)
--- NOTE | 2018-07-31 08:53 | PRG ---
DATE OF SERVICE: 07/31/2018 The patient is a 73-year-old male, postoperative day #4 from lumbar wound revision following dehiscence after moving a recliner from surgery several weeks ago. Following the surgery I had placed in a lumbar drain, which was removed yesterday. He initially had some posterior headaches, but these have resolved at this time. He is sitting up in his chair and he is comfortable. He is eating his breakfast and has free active range of motion of all extremities. No focal motor weakness is appreciated. His incision is dry. He is complaining of some diarrhea this morning. He has been on recent IV antibiotics. The medicine team is also following the patient. We will ask them to evaluate for his recent bowel change. Job ID: [id number]
[2018-07-31] MEDS: Losartan 25 MG TAB PO SCH (08:57)
[2018-07-31] MEDS: metFORMIN 500 MG TAB PO SCH ×2 (08:57→17:24)
[2018-07-31] MEDS: Sodium Chloride 0.9% 1,000 ML IV SCH (08:59)
--- NOTE | 2018-07-31 09:06 | PRG ---
DATE OF SERVICE: 07/31/2018 Mr. Crisostomo is alert and in good spirits. His main complaint is diarrhea and we will check for C difficile and asked the Medicine Team to re-evaluate. He is having minimal pain and his postural headaches have resolved. We will continue to mobilize. Job ID: [id number]
[2018-07-31 10:25] LABS: #Eosinphils 0.1 thou/uL (0.0-0.7); #Lymphocytes 1.6 thou/uL (1.20-3.40); #Monocytes 0.6 thou/uL (0.11-0.59); #Neutrophils 4.3 thou/uL (1.40-6.50); %Basophils 0.3 % (0.0-1.0); %Eosinophils 0.9 % (0.0-10.0); %Lymphocytes 24.1 % (21.0-51.0); %Monocytes 9.6 % (0.0-10.0); %Neutrophils 65.1 % (42.0-75.0); Hemoglobin 10.5 g/dL (14.0-18.0); Mean Corpuscular HGB CONC 32.4 g/dL (32.0-36.0); Mean Corpuscular Hemoglobin 29.8 pg (27.0-31.0); Platelet Count 133 thou/uL (130-400); RBC Distribution Width 12.6 % (11.5-14.5); Red Blood Cell (RBC) Count 3.52 mill/uL (4.70-6.10); White Blood Cell (WBC) Count 6.6 thou/uL (4.8-10.8)
[2018-07-31 10:48] LABS: Anion Gap 12 mmol/L (10-20); BUN (Urea Nitrogen) 9 mg/dL (8.4-25.7); Calc. Creatinine Clearance 133 mL/min (70-130); Calcium 7.7 mg/dL (7.8-10.44); Carbon Dioxide 22 mmol/L (23-31); Chloride 98 mmol/L (98-107); Estimated GFR-MDRD Greater than 90; Glucose 180 mg/dL (83-110); Sodium 129 mmol/L (136-145)
[2018-07-31 10:58] LABS: Potassium 2.8 mmol/L (3.5-5.1)
--- NOTE | 2018-07-31 11:08 | PDOC.PN ---
- Subjective Encounter Start Date: 07/31/18 Encounter Start Time: 08:20 Pt seen for followup re: diarrhea. Reports multiple loose stools since last night. No nausea or vomiting. - Objective Resuscitation Status - Order Detail: 07/23/18 17:05 Resuscitation Status Routine Co-Sign Provider: Resuscitation Status: FULL: Full Resuscitation MAR Reviewed: Yes Vital Signs & Weight: Vital Signs (12 hours) Temp Pulse Resp BP Pulse Ox 07/31/18 07:07 99 F 77 20 142/71 H 96 07/31/18 06:16 98.9 F 07/31/18 04:43 99.2 F 89 16 144/67 H 94 L 07/31/18 00:00 98.3 F 85 16 126/68 95 Weight Weight 220 lb 0.341 oz Most Recent Monitor Data Heart Rate from ECG 103 NIBP 144/64 NIBP BP-Mean 90 Respiration from ECG 29 SpO2 100 I&O: 07/30/18 07/31/18 08/01/18 06:59 06:59 06:59 Intake Total 3048 1740 Output Total 1700 300 Balance 1348 1440 Result Diagrams: 07/31/18 10:05 07/31/18 10:05 Additional Labs: Accuchecks 07/31/18 07/31/18 07/30/18 09:10 05:18 19:33 POC Glucose 148 H 75 141 H 07/30/18 16:05 POC Glucose 173 H Labs reviewed by me Phys Exam - Physical Examination Obese HEENT: moist MMs Neck: supple Respiratory: clear to auscultation bilateral Cardiovascular: RRR Gastrointestinal: soft, non-tender, positive bowel sounds Neurological: moves all 4 limbs Psychiatric: normal affect Dx/Plan (1) Diarrhea Code(s): R19.7 - DIARRHEA, UNSPECIFIED Status: Acute Comment: check stool for C. diff (2) Hypokalemia Code(s): E87.6 - HYPOKALEMIA Status: Acute Comment: replace potassium (3) Hyponatremia Code(s): E87.1 - HYPO-OSMOLALITY AND HYPONATREMIA Status: Acute Comment: follow sodium level. Pt is asymptomatic (4) Fever Code(s): R50.9 - FEVER, UNSPECIFIED Status: Acute Comment: On Zosyn and vancomycin, cultures negative so far. (5) HTN (hypertension) Code(s): I10 - ESSENTIAL (PRIMARY) HYPERTENSION Status: Chronic Qualifiers: Hypertension type: essential hypertension Qualified Code(s): I10 - Essential (primary) hypertension Comment: controlled (6) Dyslipidemia Code(s): E78.5 - HYPERLIPIDEMIA, UNSPECIFIED Status: Chronic Comment: continue statin (7) DM type 2 (diabetes mellitus, type 2) Status: Chronic Qualifiers: Diabetes mellitus termite control technician insulin use: with termite control technician use Diabetes mellitus complication status: with unspecified complications Qualified Code(s) : E11.8 - Type 2 diabetes mellitus with unspecified complications; Z79.4 - group home (current) use of insulin Comment: on accuchecks and insulin sliding scale. (8) BPH (benign prostatic hyperplasia) Code(s): N40.0 - BENIGN PROSTATIC HYPERPLASIA WITHOUT LOWER URINRY TRACT SYMP Status: Chronic Comment: stable - Plan * . Review of Systems - Review of Systems Cardiovascular: negative: chest pain, palpitations, orthopnea, paroxysmal nocturnal dyspnea, edema, light headedness Gastrointestinal: Diarrhea. negative: Nausea, Vomiting, Abdominal Pain, Constipation, Melena, Hematochezia - Medications/Allergies Allergies/Adverse Reactions: Allergies Allergy/AdvReac Type Severity Reaction Status Date / Time irbesartan Allergy Verified 06/23/18 09:55 lisinopril Allergy cough Verified 06/23/18 09:55 Medications: Current Medications Acetaminophen (Tylenol) 650 mg PO Q4H PRN PRN Reason: Headache/Fever/Mild Pain (1-3) Last Admin: 07/30/18 00:32 Dose: 650 mg Hydrocodone Bitart/Acetaminophen ([place] 5/325) 1 tab PO Q4H PRN PRN Reason: Moderate Pain (4-6) Last Admin: 07/30/18 17:42 Dose: 1 tab Atorvastatin Calcium (Lipitor) 10 mg PO HS [facility] Last Admin: 07/30/18 21:30 Dose: 10 mg Bisacodyl (Dulcolax) 10 mg PO DAILYPRN PRN PRN Reason: Constipation Dextrose/Water (Dextrose 50%) 25 gm IVP PRN PRN PRN Reason: HYPOGLYCEMIA PROTOCOL Enoxaparin Sodium (Lovenox) 40 mg SC 2100 [facility] Last Admin: 07/30/18 21:30 Dose: 40 mg Glucagon (Glucagon) 1 mg IM PRN PRN PRN Reason: HYPOGLYCEMIA PROTOCOL Hydralazine HCl (Apresoline) 10 mg SLOW IVP Q6H PRN PRN Reason: SBP Greater Than 170 Insulin Glargine 40 units/ (Miscellaneous Medication) 0.4 mls @ 0 mls/hr SC [facility] Last Admin: 07/31/18 09:11 Dose: 0.4 mls Insulin Glargine 45 units/ (Miscellaneous Medication) 0.45 mls @ 0 mls/hr SC [facility] Last Admin: 07/30/18 21:30 Dose: 0.45 mls Dextrose/Water (D5w) 1,000 mls @ 0 mls/hr IV INF PRN PRN Reason: HYPOGLYCEMIA PROTOCOL Piperacillin Sod/Tazobactam (Sod 4.5 gm/ Sodium Chloride) 100 mls @ 200 mls/hr IVPB 0800,1600,2359 [facility] Last Admin: 07/31/18 08:56 Dose: 100 mls Sodium Chloride (Normal Saline 0.9%) 1,000 mls @ 80 mls/hr IV .[id number] [facility] Last Admin: 07/31/18 08:59 Dose: 1,000 mls Vancomycin HCl 1.75 gm/ Sodium (Chloride) 500 mls @ 250 mls/hr IVPB 0600,1800 [facility] Last Admin: 07/31/18 06:27 Dose: 500 mls Insulin Human Lispro (Humalog) [facility] Last Admin: 07/31/18 08:52 Dose: Not Given Insulin Human Regular (Humulin R) 0 units SC .MODERATE SLIDING SC PRN; Protocol PRN Reason: MODERATE SLIDING SCALE Last Admin: 07/29/18 12:47 Dose: 4 unit Lorazepam (Ativan) 0.5 mg SLOW IVP Q6H PRN PRN Reason: Anxiety/Agitation Losartan Potassium (Cozaar) 25 mg PO [facility] Last Admin: 07/31/18 08:57 Dose: 25 mg Metformin HCl (Glucophage) 1,000 mg PO [facility] Last Admin: 07/31/18 08:57 Dose: 1,000 mg Miscellaneous Medication (Pharmacy To Dose) 1 each IVPB PRN PRN PRN Reason: Pharmacy to dose Ondansetron HCl (Zofran) 4 mg IVP Q6H PRN PRN Reason: Nausea/Vomiting Last Admin: 07/28/18 09:01 Dose: 4 mg Pantoprazole Sodium (Protonix) 40 mg PO DAILY [facility] Last Admin: 07/31/18 08:57 Dose: 40 mg Potassium Chloride (K-Dur) 40 meq PO Q4H [facility] Stop: 07/31/18 15:16 Senna/Docusate Sodium (Senokot S) 2 tab PO BID PRN PRN Reason: Constipation Sodium Chloride (Flush - Normal Saline) 10 ml IVF PRN PRN PRN Reason: Saline Flush Terazosin HCl (Hytrin) 10 mg PO HS [facility] Last Admin: 07/30/18 21:30 Dose: 10 mg Tramadol HCl (Ultram) 50 mg PO Q6H PRN PRN Reason: Mild Pain (1-3) Last Admin: 07/24/18 23:24 Dose: 50 mg
[2018-07-31] MEDS: Potassium Chloride 20 MEQ TAB PO SCH ×2 (11:49→17:24)
[2018-07-31] MEDS: HYDROcodone/Acetaminophen 5/325 mg Tablet PO PRN (19:18)
--- NOTE | 2018-07-31 19:57 | PDOC.EVN ---
Event Note - Event Note Event Note: Called by RN for pt with 12 bm's since this morning. C diff testing negative. Will start imodium 2 mg caps, no more than 16 mg per 24 hours.
[2018-07-31] MEDS: Insulin Glargine 45 UNITS in Pre-Filled Syringe 1 EACH SC SCH (20:19)
[2018-07-31] MEDS: Enoxaparin Sodium 40 MG/0.4 ML SYRINGE SC SCH (20:55)
[2018-07-31] MEDS: Terazosin HCl 5 MG CAP PO SCH (20:56)
[2018-07-31] MEDS: Loperamide HCl 2 MG CAP PO PRN (20:56)
[2018-07-31] MEDS: Atorvastatin Calcium 10 MG TAB PO SCH (20:56)
--- NOTE | 2018-07-31 23:17 | EKG ---
Test Reason : Blood Pressure : / mmHG Vent. Rate : 075 BPM Atrial Rate : 075 BPM P-R Int : 134 ms QRS Dur : 076 ms QT Int : 412 ms P-R-T Axes : 053 -02 -70 degrees QTc Int : 460 ms Sinus rhythm with Premature atrial complexes with Abberant conduction Inferior infarct , age undetermined Abnormal ECG Confirmed by ANNE MARIE DIAZ ([id number]), publication editor KAREN HANKS ([id number]) on 07/31/2018 11:17:12 PM Referred By: JOE Confirmed By:ANNE MARIE DIAZ
[2018-08-01] MEDS: Piperacillin/Tazobactam 4.5 GM in Sodium Chloride 0.9% 100 ML IVPB SCH ×2 (00:59→08:23)
[2018-08-01] MEDS: Sodium Chloride 0.9% 1,000 ML IV SCH (00:59)
[2018-08-01] MEDS: Loperamide HCl 2 MG CAP PO PRN (01:01)
[2018-08-01] MEDS: Vancomycin HCl 1.75 GM in Sodium Chloride 0.9% 500 ML IVPB SCH (06:18)
[2018-08-01 06:39] LABS: #Eosinphils 0.1 thou/uL (0.0-0.7); #Lymphocytes 1.5 thou/uL (1.20-3.40); #Monocytes 0.6 thou/uL (0.11-0.59); %Basophils 0.4 % (0.0-1.0); %Eosinophils 1.9 % (0.0-10.0); %Neutrophils 63.8 % (42.0-75.0); Hemoglobin 10.7 g/dL (14.0-18.0); Mean Corpuscular Hemoglobin 30.3 pg (27.0-31.0); Mean Corpuscular Volume 91.7 fL (78.0-98.0); Mean Platelet Volume 7.8 fL (7.4-10.4); Platelet Count 130 thou/uL (130-400); RBC Distribution Width 12.7 % (11.5-14.5); Red Blood Cell (RBC) Count 3.53 mill/uL (4.70-6.10); White Blood Cell (WBC) Count 6.2 thou/uL (4.8-10.8)
[2018-08-01 06:57] LABS: Anion Gap 10 mmol/L (10-20); BUN (Urea Nitrogen) 7 mg/dL (8.4-25.7); Calc. Creatinine Clearance 139 mL/min (70-130); Calcium 8.2 mg/dL (7.8-10.44); Carbon Dioxide 23 mmol/L (23-31); Chloride 106 mmol/L (98-107); Estimated GFR-MDRD Greater than 90; Glucose 81 mg/dL (83-110); Sodium 136 mmol/L (136-145)
[2018-08-01] MEDS: Losartan 25 MG TAB PO SCH (08:23)
[2018-08-01] MEDS: Insulin Glargine 40 UNITS in Pre-Filled Syringe 1 EACH SC SCH (08:23)
[2018-08-01] MEDS: metFORMIN 500 MG TAB PO SCH (08:28)
[2018-08-01] MEDS: HumaLOG 300 UNITS/3 ML VIAL SC SCH (08:28)
[2018-08-01 08:36] VITALS: BP 150/69; TEMP 97.9
[2018-08-01] MEDS: HYDROcodone/Acetaminophen 5/325 mg Tablet PO PRN (11:10)
== END 2018-08-01 11:58 | disposition home or self-care (01) | DRG 29 ==
LOC: ERS 15:07 → SURG A 16:33 → OBSVTOIN 07-27 10:22 → CCU 07-27 13:38 → SURG A 07-29 14:56
PROVIDERS: ADMIT Surgery; ATTEND Surgery
PROC: 00QT0ZZ Repair Spinal Meninges, Open Approach (ICD-10-PCS; principal; 2018-07-27)
DX: G96.0 Cerebrospinal fluid leak (principal); T81.30XA Disruption of wound, unspecified, initial encounter; E87.1 Hypo-osmolality and hyponatremia; I10 Essential (primary) hypertension; E78.5 Hyperlipidemia, unspecified; E11.9 Type 2 diabetes mellitus without complications; N40.0 Benign prostatic hyperplasia without lower urinary tract symptoms; R19.7 Diarrhea, unspecified; G96.19 Other disorders of meninges, not elsewhere classified; E87.6 Hypokalemia; R50.9 Fever, unspecified; Z79.4 Long term (current) use of insulin
CPT/HCPCS: 36415; 36416; 70450; 71045; 72148; 76000; 80048; 80053; 80202; 81003; 83735; 85025; 85652; 86140; 87040; 87086; 87324; 87449; 93005; J0131; J1170; J1650; J1815; J1825; J2001; J2405; J2543; J2550; J2704; J3010; J3370; J3490; J7050